=== PATIENT | male | born 1990 | race Caucasian/White ===

== ENCOUNTER 2019-06-29 18:12 | Inpatient (IN) | payer MEDICAID, SELFPAY ==
[~2019-06-29] VITALS: Ht 185.4 cm; Wt 86.2 kg
[~2019-06-29 18:12] MED LIST: MIRT15 PO; RISP.5 PO
[2019-06-29 19:14] LABS: BASOPHILS % (AUTO) 0.5 % (0.0-2.0); EOSINOPHILS % (AUTO) 2.6 % (1.0-6.0); LYMPHOCYTES % (AUTO) 26.7 % (22.0-44.0); MEAN CORPUSCULAR HGB CONC 32.5 G/dL (31.0-37.0); MEAN CORPUSCULAR VOLUME 89 fL (80-100); MONOCYTES # (AUTO) 0.6 K/uL (0.1-1.0); MONOCYTES % (AUTO) 7.5 % (2.0-9.0); NEUTROPHILS # (AUTO) 4.6 K/uL (1.8-7.7); NEUTROPHILS % (AUTO) 62.7 % (40.0-70.0); PLATELET COUNT (AUTO) 231 K/uL (150-450); RED BLOOD CELL COUNT(AUTO) 4.82 MIL/uL (4.50-5.90); RED CELL DISTRIBUTION WIDTH 13.8 % (11.5-14.5)
[2019-06-29 19:40] LABS: ANION GAP 14 mmol/L (8-16); CALCIUM, TOTAL 8.7 mg/dL (8.8-10.5); CARBON DIOXIDE 22 mmol/L (22-29); CHLORIDE 105 mmol/L (98-107); CREATININE 0.78 mg/dL (0.60-1.30); GLOMERULAR FILTR. RATE CALC > 60 mL/min (>60); GLUCOSE,RANDOM 111 mg/dL (70-110); POTASSIUM 3.5 mmol/L (3.5-5.1); SODIUM SERUM 141 mmol/L (136-145); UREA NITROGEN, BLOOD 6 mg/dL (7-18)
[2019-06-29 19:45] LABS: ALANINE AMINOTRANSFERASE 30 U/L (12-78); ALBUMIN 3.6 g/dL (3.4-5.0); ALKALINE PHOSPHATASE 116 U/L (46-116); ASPARTATE AMINOTRANSFERASE 37 U/L (15-37); BILIRUBIN,TOTAL 0.3 mg/dL (0.1-1.0); TOTAL PROTEIN, SERUM 7.2 g/dL (6.4-8.2)
[2019-06-29] MEDS ORDERED: HALOPERIDOL 5 MG TABLET PO ONE (20:30)
[2019-06-29 20:35] LABS: AMPHET/METH SCREEN,URINE POSITIVE (NEGATIVE); BARBITURATE SCREEN, URINE NEGATIVE (NEGATIVE); BENZODIAZEPINES SCREEN,URINE NEGATIVE (NEGATIVE); CANNABINOID SCREEN,URINE POSITIVE (NEGATIVE); COCAINE SCREEN,URINE NEGATIVE (NEGATIVE); METHADONE SCREEN, URINE NEGATIVE (NEGATIVE); OPIATE SCREEN,URINE NEGATIVE (NEGATIVE); PHENCYCLIDINE SCREEN,URINE NEGATIVE (NEGATIVE)
[2019-06-29] MEDS ORDERED: LORazepam 2 MG TABLET PO PRN (21:45)
[2019-06-30] VITALS (10 sets, daily range): BP systolic 117–139; BP diastolic 64–90
[2019-06-30] MEDS ORDERED: PNEUMOCOCCAL VACCINE POLYVALENT 0.5 ML VIAL [PPSV23] IM ONE (04:00)
[2019-06-30] MEDS ORDERED: ALBUTEROL SULFATE HFA 90 MCG/PUFF 8 GM INHALER IH PRN (09:45)
[2019-06-30] MEDS ORDERED: CloNIDine HCL 0.1 MG TABLET PO PRN (09:45)
[2019-06-30] MEDS ORDERED: GuaiFENesin/D-METHORPHAN [SUGAR-FREE] 200-20MG/10 ML SYRUP UDCUP PO PRN (09:45)
[2019-06-30] MEDS ORDERED: PETROLATUM,WHITE 28 GM JELLY TP PRN (09:45)
[2019-06-30] MEDS ORDERED: ONDANSETRON HCL 4 MG TABLET PO PRN (09:45)
[2019-06-30] MEDS ORDERED: NICOTINE 14 MG/24 HOUR PATCH TD PRN (09:45)
[2019-06-30] MEDS ORDERED: ACETAMINOPHEN 325 MG TABLET PO PRN (09:45)
[2019-06-30] MEDS ORDERED: MAGNESIUM HYDROXIDE SUSPENSION 30 ML UDCUP PO PRN (09:45)
[2019-06-30] MEDS ORDERED: DOCUSATE SODIUM 100 MG CAPSULE PO PRN (09:45)
[2019-06-30] MEDS ORDERED: MAG HYDROX/AL HYDROX/SIMETH ES 30 ML SUSPENSION UDCUP PO PRN (09:45)
[2019-06-30] MEDS ORDERED: IBUPROFEN 400 MG TABLET PO PRN (09:45)
[2019-06-30] MEDS ORDERED: LOPERAMIDE HCL 2 MG CAPSULE PO PRN (09:45)
[2019-06-30] MEDS ORDERED: CYANOCOBALAMIN 1,000 MCG/ML VIAL IM ONE (11:15)
[2019-06-30] MEDS ORDERED: LORazepam 2 MG TABLET PO PRN (11:15)
[2019-06-30] MEDS: MULTIVITAMINS WITH MINERALS, THERAPEUTIC TABLET PO SCH (12:26)
[2019-06-30] MEDS: FOLIC ACID 1 MG TABLET PO SCH (12:27)
[2019-06-30] MEDS: THIAMINE HCL 100 MG TABLET PO SCH (16:40)
[2019-07-01 01:16] VITALS: BP 127/79
[2019-07-01 05:16] VITALS: BP 121/81
[2019-07-01] MEDS ORDERED: LORazepam 2 MG TABLET PO PRN (07:00)
[2019-07-01 08:09] VITALS: BP 140/90
[2019-07-01] MEDS: LORazepam 2 MG TABLET PO SCH ×5 (09:00→20:36)
[2019-07-01 09:16] VITALS: BP 140/90
[2019-07-01] MEDS: FOLIC ACID 1 MG TABLET PO SCH (09:23)
[2019-07-01] MEDS: THIAMINE HCL 100 MG TABLET PO SCH ×2 (09:23→16:45)
[2019-07-01] MEDS: MULTIVITAMINS WITH MINERALS, THERAPEUTIC TABLET PO SCH (09:24)
[2019-07-01 13:16] VITALS: BP 126/49
[2019-07-01 16:00] VITALS: BP 140/62
[2019-07-01] MEDS: HALOPERIDOL 5 MG TABLET PO PRN (16:46)
[2019-07-02 06:05] VITALS: BP 122/71
[2019-07-02 08:00] VITALS: BP 114/70
[2019-07-02] MEDS: LORazepam 2 MG TABLET PO SCH ×4 (09:36→20:27)
[2019-07-02] MEDS: THIAMINE HCL 100 MG TABLET PO SCH ×2 (09:36→16:55)
[2019-07-02] MEDS: MULTIVITAMINS WITH MINERALS, THERAPEUTIC TABLET PO SCH (09:36)
[2019-07-02] MEDS: FOLIC ACID 1 MG TABLET PO SCH (09:36)
[2019-07-02] MEDS: RisperiDONE 1 MG TABLET PO SCH ×2 (10:08→20:28)
[2019-07-02 16:39] VITALS: BP_SYST 126; BP_DIAS 71; BP_DIAS 81
[2019-07-02] MEDS: HALOPERIDOL 5 MG TABLET PO PRN (16:55)
[2019-07-03 05:54] VITALS: BP 122/78
[2019-07-03] MEDS ORDERED: LORazepam 1 MG TABLET PO PRN (07:00)
[2019-07-03] MEDS: FOLIC ACID 1 MG TABLET PO SCH (08:02)
[2019-07-03] MEDS: RisperiDONE 1 MG TABLET PO SCH ×2 (08:02→20:08)
[2019-07-03] MEDS: THIAMINE HCL 100 MG TABLET PO SCH ×2 (08:02→16:02)
[2019-07-03] MEDS: LORazepam 1 MG TABLET PO SCH ×4 (08:02→20:08)
[2019-07-03] MEDS: MULTIVITAMINS WITH MINERALS, THERAPEUTIC TABLET PO SCH (08:02)
[2019-07-03] MEDS ORDERED: RISP1 PO (08:48)
[2019-07-03] MEDS ORDERED: THIA100T67 PO (08:48)
[2019-07-03 08:57] VITALS: BP 146/80
[2019-07-03 16:00] VITALS: BP 131/80
[2019-07-03 17:56] VITALS: BP 131/80
[2019-07-03] MEDS: ZOLPIDEM TARTRATE 10 MG TABLET PO PRN (20:08)
[2019-07-04 04:23] VITALS: BP 123/78
[2019-07-04] MEDS: HALOPERIDOL 5 MG TABLET PO PRN ×2 (08:22→16:21)
[2019-07-04] MEDS: MULTIVITAMINS WITH MINERALS, THERAPEUTIC TABLET PO SCH (08:22)
[2019-07-04] MEDS: LORazepam 1 MG TABLET PO PRN ×2 (08:22→16:21)
[2019-07-04] MEDS: THIAMINE HCL 100 MG TABLET PO SCH ×2 (08:22→16:21)
[2019-07-04] MEDS: RisperiDONE 1 MG TABLET PO SCH ×2 (08:22→20:20)
[2019-07-04] MEDS: FOLIC ACID 1 MG TABLET PO SCH (08:30)
[2019-07-04 09:00] VITALS: BP 129/72
[2019-07-04 16:00] VITALS: BP 128/81
[2019-07-05] MEDS: LORazepam 1 MG TABLET PO PRN (06:40)
[2019-07-05 08:14] VITALS: BP 141/69
[2019-07-05] MEDS: MULTIVITAMINS WITH MINERALS, THERAPEUTIC TABLET PO SCH (09:18)
[2019-07-05] MEDS: THIAMINE HCL 100 MG TABLET PO SCH ×2 (09:18→16:32)
[2019-07-05] MEDS: FOLIC ACID 1 MG TABLET PO SCH (09:18)
[2019-07-05] MEDS: RisperiDONE 1 MG TABLET PO SCH ×2 (09:19→20:28)
[2019-07-05 16:13] VITALS: BP 109/62
[2019-07-05] MEDS: HALOPERIDOL 5 MG TABLET PO PRN (16:32)
[2019-07-06 01:53] VITALS: BP 119/84
[2019-07-06] MEDS: HALOPERIDOL 5 MG TABLET PO PRN (02:00)
[2019-07-06] MEDS: ZOLPIDEM TARTRATE 10 MG TABLET PO PRN (02:00)
[2019-07-06 08:17] VITALS: BP 110/66
[2019-07-06] MEDS: MULTIVITAMINS WITH MINERALS, THERAPEUTIC TABLET PO SCH (08:49)
[2019-07-06] MEDS: RisperiDONE 1 MG TABLET PO SCH (08:49)
[2019-07-06] MEDS: FOLIC ACID 1 MG TABLET PO SCH (08:49)
[2019-07-06] MEDS: THIAMINE HCL 100 MG TABLET PO SCH (08:50)
== END 2019-07-06 14:28 | disposition home or self-care (01) | DRG 750 ==
LOC: EMS 18:15 → B3A 21:22
DX: F25.0 Schizoaffective disorder, bipolar type (principal); R45.851 Suicidal ideations; Z59.0 Homelessness; F60.0 Paranoid personality disorder; I10 Essential (primary) hypertension; F17.210 Nicotine dependence, cigarettes, uncomplicated; M54.9 Dorsalgia, unspecified; R73.9 Hyperglycemia, unspecified; F19.10 Other psychoactive substance abuse, uncomplicated; F10.20 Alcohol dependence, uncomplicated; F15.10 Other stimulant abuse, uncomplicated; F12.10 Cannabis abuse, uncomplicated; Z87.828 Personal history of other (healed) physical injury and trauma; Z71.51 Drug abuse counseling and surveillance of drug abuser; Z71.41 Alcohol abuse counseling and surveillance of alcoholic
CPT/HCPCS: 90732; G0480; J3420

== ENCOUNTER 2019-08-10 22:03 | Inpatient (IN) | payer MEDICAID ==
[~2019-08-10] VITALS: Ht 182.9 cm; Wt 88.5 kg
[~2019-08-10 22:03] MED LIST changes: -MIRT15 PO; -RISP.5 PO; +RISP1 PO
[2019-08-10 22:55] LABS: BASOPHILS % (AUTO) 0.6 % (0.0-2.0); EOSINOPHILS % (AUTO) 2.7 % (1.0-6.0); HEMATOCRIT 41.9 % (41-53); LYMPHOCYTES # (AUTO) 3.1 K/uL (1.0-4.8); LYMPHOCYTES % (AUTO) 39.7 % (22.0-44.0); MEAN CORPUSCULAR HEMOGLOBIN 29.3 pg (26.0-34.0); MEAN CORPUSCULAR HGB CONC 33.3 G/dL (31.0-37.0); MEAN CORPUSCULAR VOLUME 88 fL (80-100); MONOCYTES # (AUTO) 0.7 K/uL (0.1-1.0); MONOCYTES % (AUTO) 8.2 % (2.0-9.0); NEUTROPHILS # (AUTO) 3.9 K/uL (1.8-7.7); NEUTROPHILS % (AUTO) 48.8 % (40.0-70.0); PLATELET COUNT (AUTO) 336 K/uL (150-450); RED BLOOD CELL COUNT(AUTO) 4.77 MIL/uL (4.50-5.90); RED CELL DISTRIBUTION WIDTH 13.6 % (11.5-14.5)
[2019-08-10 23:20] LABS: AMPHET/METH SCREEN,URINE POSITIVE (NEGATIVE); BARBITURATE SCREEN, URINE NEGATIVE (NEGATIVE); BENZODIAZEPINES SCREEN,URINE NEGATIVE (NEGATIVE); CANNABINOID SCREEN,URINE NEGATIVE (NEGATIVE); COCAINE SCREEN,URINE NEGATIVE (NEGATIVE); METHADONE SCREEN, URINE NEGATIVE (NEGATIVE); OPIATE SCREEN,URINE NEGATIVE (NEGATIVE)
[2019-08-10 23:22] LABS: PHENCYCLIDINE SCREEN,URINE NEGATIVE (NEGATIVE)
[2019-08-10] MEDS: HALOPERIDOL LACTATE 5 MG/ML VIAL IM ONE ×2 (23:37→23:45)
[2019-08-10] MEDS: DiphenhydrAMINE HCL 50 MG/ML VIAL IM ONE ×2 (23:37→23:44)
[2019-08-10 23:38] LABS: ANION GAP 14 mmol/L (8-16); CARBON DIOXIDE 23 mmol/L (22-29); CHLORIDE 102 mmol/L (98-107); CREATININE 0.83 mg/dL (0.60-1.30); GLOMERULAR FILTR. RATE CALC > 60 mL/min (>60); GLUCOSE,RANDOM 75 mg/dL (70-110); POTASSIUM 3.5 mmol/L (3.5-5.1); SODIUM SERUM 139 mmol/L (136-145); UREA NITROGEN, BLOOD 16 mg/dL (7-18)
[2019-08-10] MEDS: LORazepam 2 MG/ML VIAL IM ONE ×2 (23:38→23:44)
[2019-08-10 23:44] LABS: ALANINE AMINOTRANSFERASE 39 U/L (12-78); ALBUMIN 3.8 g/dL (3.4-5.0); ALKALINE PHOSPHATASE 153 U/L (46-116); ASPARTATE AMINOTRANSFERASE 37 U/L (15-37); BILIRUBIN,TOTAL 0.3 mg/dL (0.1-1.0); TOTAL PROTEIN, SERUM 8.1 g/dL (6.4-8.2)
[2019-08-11] MEDS: DiphenhydrAMINE HCL 50 MG/ML VIAL IM ONE (00:03)
[2019-08-11] MEDS: HALOPERIDOL LACTATE 5 MG/ML VIAL IM ONE (00:03)
[2019-08-11] MEDS: LORazepam 2 MG/ML VIAL IM ONE (00:03)
[2019-08-11] MEDS ORDERED: INFLUENZA VIRUS VACCINE QVS 2019-20 (3YR+)/PF 60 MCG/0.5 ML SYRINGE IM ONE (03:30)
[2019-08-11 06:19] VITALS: BP 134/78
[2019-08-11] MEDS ORDERED: NICOTINE 14 MG/24 HOUR PATCH TD PRN (06:45)
[2019-08-11] MEDS ORDERED: MAGNESIUM HYDROXIDE SUSPENSION 30 ML UDCUP PO PRN (06:45)
[2019-08-11] MEDS ORDERED: ACETAMINOPHEN 325 MG TABLET PO PRN (06:45)
[2019-08-11] MEDS ORDERED: ALBUTEROL SULFATE HFA 90 MCG/PUFF 8 GM INHALER IH PRN (06:45)
[2019-08-11] MEDS ORDERED: PETROLATUM,WHITE 28 GM JELLY TP PRN (06:45)
[2019-08-11] MEDS ORDERED: CloNIDine HCL 0.1 MG TABLET PO PRN (06:45)
[2019-08-11] MEDS ORDERED: GuaiFENesin/D-METHORPHAN [SUGAR-FREE] 200-20MG/10 ML SYRUP UDCUP PO PRN (06:45)
[2019-08-11] MEDS ORDERED: LOPERAMIDE HCL 2 MG CAPSULE PO PRN (06:45)
[2019-08-11] MEDS ORDERED: MAG HYDROX/AL HYDROX/SIMETH ES 30 ML SUSPENSION UDCUP PO PRN (06:45)
[2019-08-11] MEDS ORDERED: ONDANSETRON HCL 4 MG TABLET PO PRN (06:45)
[2019-08-11 08:12] LABS: CHOL/HDL RATIO 3.2 (4.2-7.3)
[2019-08-11 08:15] VITALS: BP 133/63
[2019-08-11] MEDS ORDERED: BACITRACIN 28.4 GM OINTMENT TP SCH (09:00)
[2019-08-11] MEDS: BACITRACIN 3.5 GM OPHTHALMIC OINTMENT OD SCH ×2 (12:59→16:13)
[2019-08-11] MEDS: IBUPROFEN 400 MG TABLET PO PRN (14:55)
[2019-08-11 16:00] VITALS: BP_SYST 116; BP_SYST 123; BP_DIAS 62; BP_DIAS 84
[2019-08-11] MEDS: LORazepam 2 MG TABLET PO PRN ×2 (16:13→20:52)
[2019-08-11] MEDS: HALOPERIDOL 5 MG TABLET PO PRN (16:13)
[2019-08-11] MEDS: ZOLPIDEM TARTRATE 10 MG TABLET PO PRN (20:52)
[2019-08-11] MEDS: RisperiDONE 1 MG TABLET PO SCH (20:52)
[2019-08-12 06:50] VITALS: BP 122/74
[2019-08-12 08:36] LABS: BASOPHILS % (AUTO) 0.5 % (0.0-2.0); EOSINOPHILS % (AUTO) 4.3 % (1.0-6.0); HEMATOCRIT 44.5 % (41-53); HEMOGLOBIN 14.8 g/dL (13.5-17.5); LYMPHOCYTES # (AUTO) 1.8 K/uL (1.0-4.8); LYMPHOCYTES % (AUTO) 40.1 % (22.0-44.0); MEAN CORPUSCULAR HEMOGLOBIN 29.6 pg (26.0-34.0); MEAN CORPUSCULAR HGB CONC 33.2 G/dL (31.0-37.0); MEAN CORPUSCULAR VOLUME 89 fL (80-100); MONOCYTES # (AUTO) 0.4 K/uL (0.1-1.0); MONOCYTES % (AUTO) 7.8 % (2.0-9.0); NEUTROPHILS # (AUTO) 2.2 K/uL (1.8-7.7); NEUTROPHILS % (AUTO) 47.3 % (40.0-70.0); PLATELET COUNT (AUTO) 324 K/uL (150-450); RED CELL DISTRIBUTION WIDTH 13.8 % (11.5-14.5)
[2019-08-12 08:39] VITALS: BP 121/67
[2019-08-12 08:46] LABS: HEMOGLOBIN A1C 5.1 % (4.5-6.2)
[2019-08-12] MEDS: RisperiDONE 1 MG TABLET PO SCH ×2 (08:51→20:54)
[2019-08-12] MEDS: BACITRACIN 3.5 GM OPHTHALMIC OINTMENT OD SCH ×2 (08:51→17:18)
[2019-08-12 09:49] LABS: ALANINE AMINOTRANSFERASE 38 U/L (12-78); ALBUMIN 3.8 g/dL (3.4-5.0); ALKALINE PHOSPHATASE 138 U/L (46-116); ANION GAP 3 mmol/L (8-16); ASPARTATE AMINOTRANSFERASE 30 U/L (15-37); BILIRUBIN,TOTAL 0.2 mg/dL (0.1-1.0); CALCIUM, TOTAL 9.1 mg/dL (8.8-10.5); CARBON DIOXIDE 33 mmol/L (22-29); CHLORIDE 101 mmol/L (98-107); CREATININE 0.79 mg/dL (0.60-1.30); GLOMERULAR FILTR. RATE CALC > 60 mL/min (>60); GLUCOSE,RANDOM 88 mg/dL (70-110); POTASSIUM 4.9 mmol/L (3.5-5.1); SODIUM SERUM 137 mmol/L (136-145); TOTAL PROTEIN, SERUM 7.4 g/dL (6.4-8.2)
[2019-08-12 09:55] LABS: UREA NITROGEN, BLOOD 12 mg/dL (7-18)
[2019-08-12] MEDS: LORazepam 2 MG TABLET PO PRN ×2 (14:52→18:55)
[2019-08-12] MEDS: HALOPERIDOL 5 MG TABLET PO PRN (16:57)
[2019-08-12 19:30] VITALS: BP 120/75
[2019-08-12] MEDS: ZOLPIDEM TARTRATE 10 MG TABLET PO PRN (20:54)
[2019-08-13] VITALS (7 sets, daily range): BP systolic 113–133; BP diastolic 68–76
[2019-08-13] MEDS: BACITRACIN 3.5 GM OPHTHALMIC OINTMENT OD SCH ×2 (08:23→17:10)
[2019-08-13] MEDS: RisperiDONE 1 MG TABLET PO SCH ×2 (08:24→20:17)
[2019-08-13] MEDS: IBUPROFEN 400 MG TABLET PO PRN (08:24)
[2019-08-13] MEDS: TraMADol HCL 50 MG TABLET PO PRN ×2 (10:58→17:10)
[2019-08-14 00:02] VITALS: BP 117/65
[2019-08-14] MEDS: ZOLPIDEM TARTRATE 10 MG TABLET PO PRN ×2 (00:03→20:50)
[2019-08-14] MEDS: IBUPROFEN 400 MG TABLET PO PRN (00:04)
[2019-08-14 08:00] VITALS: BP 136/76
[2019-08-14] MEDS: BACITRACIN 3.5 GM OPHTHALMIC OINTMENT OD SCH ×2 (08:14→17:04)
[2019-08-14] MEDS: LORazepam 2 MG TABLET PO PRN ×3 (08:14→17:04)
[2019-08-14] MEDS: HALOPERIDOL 5 MG TABLET PO PRN ×3 (08:14→17:04)
[2019-08-14] MEDS: RisperiDONE 1 MG TABLET PO SCH ×2 (08:14→20:15)
[2019-08-14] MEDS: DOCUSATE SODIUM 100 MG CAPSULE PO PRN ×2 (08:14→12:18)
[2019-08-14 16:00] VITALS: BP 113/68
[2019-08-15 02:14] VITALS: BP 117/80
[2019-08-15] MEDS: HALOPERIDOL 5 MG TABLET PO PRN ×2 (08:04→14:43)
[2019-08-15] MEDS: RisperiDONE 1 MG TABLET PO SCH ×2 (08:04→20:13)
[2019-08-15] MEDS: LORazepam 2 MG TABLET PO PRN ×2 (08:04→14:43)
[2019-08-15] MEDS: BACITRACIN 3.5 GM OPHTHALMIC OINTMENT OD SCH ×2 (08:05→16:38)
[2019-08-15 08:34] VITALS: BP 132/81
[2019-08-15 16:03] VITALS: BP 108/63
[2019-08-16 05:52] VITALS: BP 113/74
[2019-08-16] MEDS: LORazepam 2 MG TABLET PO PRN ×2 (05:53→11:42)
[2019-08-16] MEDS: HALOPERIDOL 5 MG TABLET PO PRN (05:53)
[2019-08-16] MEDS: RisperiDONE 1 MG TABLET PO SCH (08:19)
[2019-08-16] MEDS: BACITRACIN 3.5 GM OPHTHALMIC OINTMENT OD SCH (08:19)
[2019-08-16 08:50] VITALS: BP 125/68
[2019-08-16 16:02] VITALS: BP 116/63
[2019-08-17] MEDS ORDERED: MULTIVITAMINS WITH MINERALS, THERAPEUTIC TABLET PO SCH (09:00)
== END 2019-08-16 16:23 | disposition home or self-care (01) | DRG 750 ==
LOC: EMS 22:05 → B3A 23:30
DX: F25.1 Schizoaffective disorder, depressive type (principal); R45.851 Suicidal ideations; Z59.0 Homelessness; F15.10 Other stimulant abuse, uncomplicated; I10 Essential (primary) hypertension; F17.210 Nicotine dependence, cigarettes, uncomplicated; Z79.899 Other long term (current) drug therapy
CPT/HCPCS: 83036; 84443; G0480; J1200; J1630; J2060

== ENCOUNTER → 2019-08-24 | Emergency (ER) | payer MEDICAID ==
[~2019-08-24] VITALS: Ht 185.4 cm; Wt 90.9 kg
[2019-08-25 01:01] LABS: BASOPHILS % (AUTO) 0.8 % (0.0-2.0); EOSINOPHILS % (AUTO) 3.9 % (1.0-6.0); HEMATOCRIT 44.5 % (41-53); HEMOGLOBIN 14.7 g/dL (13.5-17.5); LYMPHOCYTES # (AUTO) 2.7 K/uL (1.0-4.8); LYMPHOCYTES % (AUTO) 34.7 % (22.0-44.0); MEAN CORPUSCULAR HEMOGLOBIN 28.9 pg (26.0-34.0); MEAN CORPUSCULAR VOLUME 87 fL (80-100); MONOCYTES # (AUTO) 0.7 K/uL (0.1-1.0); MONOCYTES % (AUTO) 8.8 % (2.0-9.0); NEUTROPHILS % (AUTO) 51.8 % (40.0-70.0); PLATELET COUNT (AUTO) 324 K/uL (150-450); RED BLOOD CELL COUNT(AUTO) 5.09 MIL/uL (4.50-5.90); RED CELL DISTRIBUTION WIDTH 13.7 % (11.5-14.5)
[2019-08-25 01:10] LABS: ANION GAP 9 mmol/L (8-16); CALCIUM, TOTAL 8.6 mg/dL (8.8-10.5); CARBON DIOXIDE 27 mmol/L (22-29); CHLORIDE 104 mmol/L (98-107); GLOMERULAR FILTR. RATE CALC > 60 mL/min (>60); GLUCOSE,RANDOM 97 mg/dL (70-110); POTASSIUM 3.8 mmol/L (3.5-5.1); SODIUM SERUM 140 mmol/L (136-145); UREA NITROGEN, BLOOD 12 mg/dL (7-18)
[2019-08-25 01:16] LABS: ALANINE AMINOTRANSFERASE 29 U/L (12-78); ALKALINE PHOSPHATASE 163 U/L (46-116); ASPARTATE AMINOTRANSFERASE 27 U/L (15-37); BILIRUBIN,TOTAL 0.2 mg/dL (0.1-1.0); TOTAL PROTEIN, SERUM 7.8 g/dL (6.4-8.2)
[2019-08-25 10:56] VITALS: BP 125/76
== END | disposition home or self-care (01) ==
LOC: EMS 22:58
DX: R45.1 Restlessness and agitation (principal); F17.210 Nicotine dependence, cigarettes, uncomplicated; F15.90 Other stimulant use, unspecified, uncomplicated; Z59.0 Homelessness; Z79.899 Other long term (current) drug therapy
CPT/HCPCS: 80053; 85025; 99284; G0480

== ENCOUNTER 2019-08-25 15:52 | Inpatient (IN) | payer MEDICAID ==
[~2019-08-25] VITALS: Ht 180.3 cm; Wt 86.8 kg
[2019-08-25 17:41] LABS: BASOPHILS % (AUTO) 0.3 % (0.0-2.0); EOSINOPHILS % (AUTO) 2.2 % (1.0-6.0); HEMATOCRIT 42.6 % (41-53); HEMOGLOBIN 14.5 g/dL (13.5-17.5); LYMPHOCYTES # (AUTO) 2.4 K/uL (1.0-4.8); LYMPHOCYTES % (AUTO) 24.1 % (22.0-44.0); MEAN CORPUSCULAR HEMOGLOBIN 29.8 pg (26.0-34.0); MEAN CORPUSCULAR VOLUME 88 fL (80-100); MONOCYTES # (AUTO) 0.6 K/uL (0.1-1.0); MONOCYTES % (AUTO) 5.7 % (2.0-9.0); NEUTROPHILS # (AUTO) 6.8 K/uL (1.8-7.7); NEUTROPHILS % (AUTO) 67.7 % (40.0-70.0); PLATELET COUNT (AUTO) 314 K/uL (150-450); RED BLOOD CELL COUNT(AUTO) 4.86 MIL/uL (4.50-5.90); RED CELL DISTRIBUTION WIDTH 13.8 % (11.5-14.5)
[2019-08-25 17:59] LABS: ANION GAP 10 mmol/L (8-16); CALCIUM, TOTAL 7.8 mg/dL (8.8-10.5); CARBON DIOXIDE 26 mmol/L (22-29); CHLORIDE 104 mmol/L (98-107); CREATININE 0.69 mg/dL (0.60-1.30); GLOMERULAR FILTR. RATE CALC > 60 mL/min (>60); GLUCOSE,RANDOM 89 mg/dL (70-110); POTASSIUM 3.7 mmol/L (3.5-5.1); SODIUM SERUM 140 mmol/L (136-145); UREA NITROGEN, BLOOD 5 mg/dL (7-18)
[2019-08-25 18:02] LABS: ALANINE AMINOTRANSFERASE 26 U/L (12-78); ALBUMIN 3.6 g/dL (3.4-5.0); ALKALINE PHOSPHATASE 153 U/L (46-116); ASPARTATE AMINOTRANSFERASE 21 U/L (15-37); BILIRUBIN,TOTAL 0.2 mg/dL (0.1-1.0); TOTAL PROTEIN, SERUM 7.4 g/dL (6.4-8.2)
[2019-08-25] MEDS ORDERED: QUEtiapine FUMARATE 100 MG TABLET PO PRN (20:00)
[2019-08-25] MEDS ORDERED: ZOLPIDEM TARTRATE 10 MG TABLET PO PRN (20:00)
[2019-08-25 21:10] LABS: AMPHET/METH SCREEN,URINE POSITIVE (NEGATIVE); BARBITURATE SCREEN, URINE NEGATIVE (NEGATIVE); BENZODIAZEPINES SCREEN,URINE NEGATIVE (NEGATIVE); CANNABINOID SCREEN,URINE POSITIVE (NEGATIVE); COCAINE SCREEN,URINE NEGATIVE (NEGATIVE); METHADONE SCREEN, URINE NEGATIVE (NEGATIVE); OPIATE SCREEN,URINE NEGATIVE (NEGATIVE); PHENCYCLIDINE SCREEN,URINE NEGATIVE (NEGATIVE)
[2019-08-26 00:35] VITALS: BP 137/78
[2019-08-26] MEDS ORDERED: INFLUENZA VIRUS VACCINE QVS 2019-20 (3YR+)/PF 60 MCG/0.5 ML SYRINGE IM ONE (00:45)
[2019-08-26] MEDS ORDERED: PNEUMOCOCCAL VACCINE POLYVALENT 0.5 ML VIAL [PPSV23] IM ONE (00:45)
[2019-08-26 03:27] VITALS: BP 145/86
[2019-08-26 08:31] VITALS: BP 132/60
[2019-08-26 08:51] LABS: CHOL/HDL RATIO 2.5 (4.2-7.3)
[2019-08-26] MEDS: LORazepam 2 MG TABLET PO PRN (09:45)
[2019-08-26] MEDS: RisperiDONE 1 MG TABLET PO SCH ×2 (12:06→20:42)
[2019-08-26 16:00] VITALS: BP 135/72
[2019-08-26 16:05] VITALS: BP 135/72
[2019-08-26 20:00] VITALS: BP 122/83
[2019-08-27] VITALS: BP 115/79
[2019-08-27 07:01] VITALS: BP 115/79
[2019-08-27 08:00] VITALS: BP 131/73
[2019-08-27] MEDS: RisperiDONE 1 MG TABLET PO SCH ×2 (08:19→20:10)
[2019-08-27 08:35] VITALS: BP 131/73
[2019-08-27 16:00] VITALS: BP 140/89
[2019-08-28 06:26] VITALS: BP 112/59
[2019-08-28 07:11] VITALS: BP 125/60
[2019-08-28 08:15] VITALS: BP 121/60
[2019-08-28 08:16] VITALS: BP 121/60
[2019-08-28] MEDS: THIAMINE HCL 100 MG TABLET PO SCH (08:18)
[2019-08-28] MEDS: MULTIVITAMINS WITH MINERALS, THERAPEUTIC TABLET PO SCH (08:19)
[2019-08-28] MEDS: RisperiDONE 1 MG TABLET PO SCH ×2 (08:19→20:22)
[2019-08-28] MEDS: LORazepam 2 MG TABLET PO PRN (16:04)
[2019-08-28 16:08] VITALS: BP 129/97
[2019-08-29 07:07] VITALS: BP 124/84
[2019-08-29 08:00] VITALS: BP 130/79
[2019-08-29] MEDS: MULTIVITAMINS WITH MINERALS, THERAPEUTIC TABLET PO SCH (08:08)
[2019-08-29] MEDS: LORazepam 2 MG TABLET PO PRN (08:08)
[2019-08-29] MEDS: RisperiDONE 1 MG TABLET PO SCH (08:08)
[2019-08-29] MEDS: THIAMINE HCL 100 MG TABLET PO SCH (08:08)
== END 2019-08-29 13:20 | disposition home or self-care (01) | DRG 750 ==
LOC: EMS 15:55 → B3A 22:42
DX: F25.1 Schizoaffective disorder, depressive type (principal); Z59.0 Homelessness; F10.129 Alcohol abuse with intoxication, unspecified; Z28.21 Immunization not carried out because of patient refusal; F12.10 Cannabis abuse, uncomplicated; F15.10 Other stimulant abuse, uncomplicated; F17.200 Nicotine dependence, unspecified, uncomplicated; I10 Essential (primary) hypertension; Z79.899 Other long term (current) drug therapy; Z91.14 Patient's other noncompliance with medication regimen; Y90.6 Blood alcohol level of 120-199 mg/100 ml
CPT/HCPCS: 87081; G0480

== ENCOUNTER 2020-01-31 08:58 | Inpatient (IN) | payer MEDICAID ==
[~2020-01-31] VITALS: Ht 185.4 cm; Wt 92.1 kg
[2020-01-31] MEDS ORDERED: ACETAMINOPHEN 325 MG TABLET PO PRN (22:45)
[2020-01-31] MEDS ORDERED: LOPERAMIDE HCL 2 MG CAPSULE PO PRN (22:45)
[2020-01-31] MEDS ORDERED: TUBERCULIN, PURIFIED PROTEIN DERIVATIVE 5 TU/0.1 ML SYRINGE ID ONE (22:45)
[2020-01-31] MEDS ORDERED: MAG HYDROX/AL HYDROX/SIMETH ES 30 ML SUSPENSION UDCUP PO PRN (22:45)
[2020-01-31] MEDS ORDERED: OLANZapine 5 MG RAPDIS TABLET PO PRN (22:45)
[2020-01-31] MEDS ORDERED: PROMETHAZINE HCL 25 MG TABLET PO PRN (22:45)
[2020-01-31] MEDS ORDERED: MAGNESIUM HYDROXIDE SUSPENSION 30 ML UDCUP PO PRN (22:45)
[2020-01-31] MEDS ORDERED: GuaiFENesin/D-METHORPHAN [SUGAR-FREE] 200-20MG/10 ML SYRUP UDCUP PO PRN (22:45)
[2020-01-31] MEDS ORDERED: INFLUENZA VIRUS VACCINE QVS 2019-20 (3YR+)/PF 60 MCG/0.5 ML SYRINGE IM ONE (23:45)
[2020-02-01 00:14] VITALS: BP 116/69
[2020-02-01] MEDS: LORazepam 2 MG TABLET PO PRN ×3 (00:51→21:26)
[2020-02-01] MEDS: ZOLPIDEM TARTRATE 10 MG TABLET PO PRN ×2 (00:51→21:26)
[2020-02-01 08:22] VITALS: BP 119/85
[2020-02-01 08:27] LABS: BASOPHILS % (AUTO) 0.3 % (0.0-2.0); EOSINOPHILS % (AUTO) 3.3 % (1.0-6.0); HEMATOCRIT 42.9 % (41-53); HEMOGLOBIN 13.9 g/dL (13.5-17.5); LYMPHOCYTES # (AUTO) 3.3 K/uL (1.0-4.8); LYMPHOCYTES % (AUTO) 52.7 % (22.0-44.0); MEAN CORPUSCULAR HEMOGLOBIN 27.8 pg (26.0-34.0); MEAN CORPUSCULAR HGB CONC 32.5 G/dL (31.0-37.0); MEAN CORPUSCULAR VOLUME 86 fL (80-100); MONOCYTES # (AUTO) 0.5 K/uL (0.1-1.0); MONOCYTES % (AUTO) 7.9 % (2.0-9.0); NEUTROPHILS # (AUTO) 2.3 K/uL (1.8-7.7); NEUTROPHILS % (AUTO) 35.8 % (40.0-70.0); PLATELET COUNT (AUTO) 192 K/uL (150-450); RED BLOOD CELL COUNT(AUTO) 5.01 MIL/uL (4.50-5.90); RED CELL DISTRIBUTION WIDTH 14.5 % (11.5-14.5)
[2020-02-01 08:53] LABS: ALANINE AMINOTRANSFERASE 21 U/L (12-78); ALBUMIN 3.5 g/dL (3.4-5.0); ALKALINE PHOSPHATASE 76 U/L (46-116); ANION GAP 5 mmol/L (8-16); ASPARTATE AMINOTRANSFERASE 18 U/L (15-37); BILIRUBIN,TOTAL 0.2 mg/dL (0.1-1.0); CALCIUM, TOTAL 8.5 mg/dL (8.8-10.5); CARBON DIOXIDE 28 mmol/L (22-29); CHLORIDE 107 mmol/L (98-107); CHOL/HDL RATIO 4.1 (4.2-7.3); CHOLESTEROL 172 mg/dL (131-200); CREATININE 0.81 mg/dL (0.60-1.30); FREE T4 (FREE THYROXINE) 0.82 ng/dL (0.76-1.46); GLOMERULAR FILTR. RATE CALC > 60 mL/min (>60); GLUCOSE,RANDOM 81 mg/dL (70-110); HDL CHOLESTEROL 42 mg/dL (40-60); LDL CHOL (CALC.) 100 mg/dL (0-130); POTASSIUM 3.7 mmol/L (3.5-5.1); SODIUM SERUM 140 mmol/L (136-145); THYROID STIMULATING HORMONE 15.16 uIU/mL (0.36-3.74); TOTAL PROTEIN, SERUM 6.8 g/dL (6.4-8.2); TRIGLYCERIDES 149 mg/dL (15-150); UREA NITROGEN, BLOOD 13 mg/dL (7-18)
[2020-02-01] MEDS: THIAMINE HCL 100 MG TABLET PO SCH ×2 (09:47→17:25)
[2020-02-01] MEDS: FOLIC ACID 1 MG TABLET PO SCH (09:47)
[2020-02-01] MEDS: MULTIVITAMINS WITH MINERALS, THERAPEUTIC TABLET PO SCH (09:49)
[2020-02-01] MEDS: NALTREXONE HCL 50 MG TABLET PO SCH (10:09)
[2020-02-01 16:12] VITALS: BP 136/83
[2020-02-01] MEDS ORDERED: QUEtiapine FUMARATE 100 MG TABLET PO PRN (17:30)
[2020-02-01] MEDS ORDERED: QUEtiapine FUMARATE 200 MG TABLET PO SCH (21:00)
[2020-02-01] MEDS ORDERED: OLANZapine 5 MG RAPDIS TABLET PO SCH (21:00)
[2020-02-02 05:17] VITALS: BP 125/85
[2020-02-02 08:13] VITALS: BP 105/60
[2020-02-02 08:21] LABS: FREE T4 (FREE THYROXINE) 0.72 ng/dL (0.76-1.46); THYROID STIMULATING HORMONE 7.15 uIU/mL (0.36-3.74)
[2020-02-02] MEDS: THIAMINE HCL 100 MG TABLET PO SCH ×2 (08:48→16:18)
[2020-02-02] MEDS: FOLIC ACID 1 MG TABLET PO SCH (08:48)
[2020-02-02] MEDS: MULTIVITAMINS WITH MINERALS, THERAPEUTIC TABLET PO SCH (08:48)
[2020-02-02] MEDS: NALTREXONE HCL 50 MG TABLET PO SCH (08:48)
[2020-02-02] MEDS ORDERED: OLANZapine 5 MG RAPDIS TABLET PO PRN (13:15)
[2020-02-02] MEDS: LEVOTHYROXINE SODIUM 50 MCG TABLET PO SCH (14:04)
[2020-02-02 16:13] VITALS: BP 115/78
[2020-02-02] MEDS: LORazepam 2 MG TABLET PO PRN (16:18)
[2020-02-02] MEDS: HydrOXYzine PAMOATE 50 MG CAPSULE PO PRN (16:19)
[2020-02-02] MEDS: ZOLPIDEM TARTRATE 10 MG TABLET PO PRN (20:44)
[2020-02-02] MEDS ORDERED: OLANZapine 5 MG RAPDIS TABLET PO SCH (21:00)
[2020-02-03 06:34] VITALS: BP 117/45
[2020-02-03] MEDS: LEVOTHYROXINE SODIUM 50 MCG TABLET PO SCH (06:51)
[2020-02-03 08:16] VITALS: BP 117/60
[2020-02-03] MEDS: FOLIC ACID 1 MG TABLET PO SCH (08:45)
[2020-02-03] MEDS: THIAMINE HCL 100 MG TABLET PO SCH ×2 (08:45→16:30)
[2020-02-03] MEDS: MULTIVITAMINS WITH MINERALS, THERAPEUTIC TABLET PO SCH (08:45)
[2020-02-03] MEDS: FLUoxetine HCL 20 MG CAPSULE PO SCH (08:45)
[2020-02-03] MEDS: NALTREXONE HCL 50 MG TABLET PO SCH (08:45)
[2020-02-03 16:17] VITALS: BP 134/64
[2020-02-03] MEDS: HydrOXYzine PAMOATE 50 MG CAPSULE PO PRN (16:30)
[2020-02-03] MEDS: LORazepam 2 MG TABLET PO PRN (16:30)
[2020-02-03] MEDS: OLANZapine 10 MG RAPDIS TABLET PO SCH (20:42)
[2020-02-04 01:02] VITALS: BP 132/72
[2020-02-04] MEDS: LEVOTHYROXINE SODIUM 50 MCG TABLET PO SCH (06:33)
[2020-02-04 08:15] VITALS: BP 128/82
[2020-02-04] MEDS: FOLIC ACID 1 MG TABLET PO SCH (09:10)
[2020-02-04] MEDS: THIAMINE HCL 100 MG TABLET PO SCH ×2 (09:10→17:23)
[2020-02-04] MEDS: FLUoxetine HCL 20 MG CAPSULE PO SCH (09:10)
[2020-02-04] MEDS: MULTIVITAMINS WITH MINERALS, THERAPEUTIC TABLET PO SCH (09:10)
[2020-02-04] MEDS: NALTREXONE HCL 50 MG TABLET PO SCH (09:10)
[2020-02-04 16:44] VITALS: BP 135/71
[2020-02-04] MEDS: OLANZapine 10 MG RAPDIS TABLET PO SCH (20:15)
[2020-02-04] MEDS: ZOLPIDEM TARTRATE 10 MG TABLET PO PRN (20:46)
[2020-02-05 06:17] VITALS: BP 131/74
[2020-02-05] MEDS: LEVOTHYROXINE SODIUM 50 MCG TABLET PO SCH (06:30)
[2020-02-05 08:34] VITALS: BP 121/78
[2020-02-05] MEDS: FOLIC ACID 1 MG TABLET PO SCH (08:46)
[2020-02-05] MEDS: THIAMINE HCL 100 MG TABLET PO SCH ×2 (08:46→17:37)
[2020-02-05] MEDS: NALTREXONE HCL 50 MG TABLET PO SCH (08:46)
[2020-02-05] MEDS: FLUoxetine HCL 20 MG CAPSULE PO SCH (08:47)
[2020-02-05] MEDS: MULTIVITAMINS WITH MINERALS, THERAPEUTIC TABLET PO SCH (08:47)
[2020-02-05 16:16] VITALS: BP 130/66
[2020-02-05] MEDS: OLANZapine 10 MG RAPDIS TABLET PO SCH (20:55)
[2020-02-06 05:42] VITALS: BP 124/74
[2020-02-06] MEDS: LEVOTHYROXINE SODIUM 50 MCG TABLET PO SCH (06:20)
[2020-02-06 08:09] VITALS: BP 110/61
[2020-02-06] MEDS: NALTREXONE HCL 50 MG TABLET PO SCH (08:18)
[2020-02-06] MEDS: THIAMINE HCL 100 MG TABLET PO SCH ×2 (08:18→18:04)
[2020-02-06] MEDS: FOLIC ACID 1 MG TABLET PO SCH (08:19)
[2020-02-06] MEDS: FLUoxetine HCL 20 MG CAPSULE PO SCH (08:19)
[2020-02-06] MEDS: MULTIVITAMINS WITH MINERALS, THERAPEUTIC TABLET PO SCH (08:19)
[2020-02-06 16:15] VITALS: BP 111/72
[2020-02-06] MEDS: ZOLPIDEM TARTRATE 10 MG TABLET PO PRN (21:00)
[2020-02-06] MEDS: OLANZapine 10 MG RAPDIS TABLET PO SCH (21:00)
[2020-02-07] MEDS: LEVOTHYROXINE SODIUM 50 MCG TABLET PO SCH (06:25)
[2020-02-07 06:38] VITALS: BP 118/75
[2020-02-07 08:29] LABS: APPEARANCE,URINE CLEAR (CLEAR); BILIRUBIN,URINE NEGATIVE (NEGATIVE); GLUCOSE, URINE (UA) NEGATIVE (NEGATIVE); KETONES,URINE NEGATIVE (NEGATIVE); LEUKOCYTE ESTERASE ,URINE TRACE (NEGATIVE); NITRATE,URINE NEGATIVE (NEGATIVE); OCCULT BLOOD,URINE NEGATIVE (NEGATIVE); PH,URINE 7.5 (5.0-8.0); PROTEIN,URINE NEGATIVE (NEGATIVE); UROBILINOGEN,URINE 0.2 mg/dL (<=1.0)
[2020-02-07 08:35] LABS: AMPHET/METH SCREEN,URINE NEGATIVE (NEGATIVE); BARBITURATE SCREEN, URINE NEGATIVE (NEGATIVE); BENZODIAZEPINES SCREEN,URINE NEGATIVE (NEGATIVE); CANNABINOID SCREEN,URINE NEGATIVE (NEGATIVE); COCAINE SCREEN,URINE NEGATIVE (NEGATIVE); METHADONE SCREEN, URINE NEGATIVE (NEGATIVE); OPIATE SCREEN,URINE NEGATIVE (NEGATIVE)
[2020-02-07 08:38] LABS: PHENCYCLIDINE SCREEN,URINE NEGATIVE (NEGATIVE)
[2020-02-07 08:44] VITALS: BP 128/50
[2020-02-07] MEDS: MULTIVITAMINS WITH MINERALS, THERAPEUTIC TABLET PO SCH (09:02)
[2020-02-07] MEDS: FOLIC ACID 1 MG TABLET PO SCH (09:02)
[2020-02-07] MEDS: NALTREXONE HCL 50 MG TABLET PO SCH (09:02)
[2020-02-07] MEDS: FLUoxetine HCL 20 MG CAPSULE PO SCH (09:02)
[2020-02-07] MEDS: THIAMINE HCL 100 MG TABLET PO SCH (09:02)
[2020-02-07 09:07] LABS: BACTERIA,URINE None Seen /HPF (None Seen); RBC,URINE None Seen /HPF (0-2); SQUAMOUS EPITHELIAL CELL,UR Rare /LPF (None Seen); WBC,URINE 0-2 /HPF (0-5)
[2020-02-07] MEDS ORDERED: FLUO-191 PO (13:32)
[2020-02-07] MEDS ORDERED: OLAN10TA22 PO (13:32)
[2020-02-07] MEDS ORDERED: NALT50TA PO (13:32)
[2020-02-07] MEDS ORDERED: LEVO125T95 PO (14:41)
== END 2020-02-07 15:10 | disposition home or self-care (01) | DRG 750 ==
LOC: B3A 22:42
PROVIDERS: ADMIT Psychiatry & Neurology Psychiatry; ATTEND Psychiatry & Neurology Psychiatry
DX: F20.0 Paranoid schizophrenia (principal); Z59.0 Homelessness; R45.851 Suicidal ideations; F12.10 Cannabis abuse, uncomplicated; Z91.19 Patient's noncompliance with other medical treatment and regimen; F15.10 Other stimulant abuse, uncomplicated; F19.20 Other psychoactive substance dependence, uncomplicated; F17.210 Nicotine dependence, cigarettes, uncomplicated; I10 Essential (primary) hypertension; F41.9 Anxiety disorder, unspecified; G47.00 Insomnia, unspecified; Z28.21 Immunization not carried out because of patient refusal
CPT/HCPCS: 80307; 83036; 84439; 84443; 86592

== ENCOUNTER 2020-03-07 20:40 | Emergency (ER) | payer MEDICAID, OTHER ==
[~2020-03-07] VITALS: Ht 175.3 cm; Wt 75.0 kg
[~2020-03-07 20:40] MED LIST changes: +FLUO-191 PO; +LEVO125T95 PO; +NALT50TA PO; +OLAN10TA22 PO; -RISP1 PO
[2020-03-07 22:58] LABS: ANION GAP 16 mmol/L (8-16); CALCIUM, TOTAL 9.9 mg/dL (8.8-10.5); CARBON DIOXIDE 25 mmol/L (22-29); CHLORIDE 97 mmol/L (98-107); CREATININE 1.26 mg/dL (0.60-1.30); GLOMERULAR FILTR. RATE CALC > 60 mL/min (>60); GLUCOSE,RANDOM 90 mg/dL (70-110); POTASSIUM 3.8 mmol/L (3.5-5.1); SODIUM SERUM 138 mmol/L (136-145); UREA NITROGEN, BLOOD 20 mg/dL (7-18)
[2020-03-07 23:01] LABS: BASOPHILS % (AUTO) 0.2 % (0.0-2.0); EOSINOPHILS % (AUTO) 0.2 % (1.0-6.0); HEMATOCRIT 51.8 % (41-53); HEMOGLOBIN 16.8 g/dL (13.5-17.5); LYMPHOCYTES # (AUTO) 2.3 K/uL (1.0-4.8); LYMPHOCYTES % (AUTO) 16.1 % (22.0-44.0); MEAN CORPUSCULAR HEMOGLOBIN 27.8 pg (26.0-34.0); MEAN CORPUSCULAR HGB CONC 32.3 G/dL (31.0-37.0); MEAN CORPUSCULAR VOLUME 86 fL (80-100); MONOCYTES % (AUTO) 7.2 % (2.0-9.0); NEUTROPHILS # (AUTO) 10.7 K/uL (1.8-7.7); NEUTROPHILS % (AUTO) 76.3 % (40.0-70.0); PLATELET COUNT (AUTO) 313 K/uL (150-450); RED BLOOD CELL COUNT(AUTO) 6.04 MIL/uL (4.50-5.90); RED CELL DISTRIBUTION WIDTH 14.2 % (11.5-14.5)
[2020-03-07 23:05] LABS: ALANINE AMINOTRANSFERASE 28 U/L (12-78); ALBUMIN 5.5 g/dL (3.4-5.0); ALKALINE PHOSPHATASE 126 U/L (46-116); ASPARTATE AMINOTRANSFERASE 34 U/L (15-37); BILIRUBIN,TOTAL 0.9 mg/dL (0.1-1.0)
[2020-03-07] MEDS ORDERED: ONDANSETRON HCL 4 MG TABLET PO ONE (23:15)
[2020-03-07] MEDS ORDERED: LORazepam 1 MG TABLET PO ONE (23:45)
[2020-03-08] MEDS ORDERED: HALOPERIDOL 5 MG TABLET PO ONE (01:15)
[2020-03-08 02:23] VITALS: BP 129/84
== END 2020-03-08 02:37 | disposition home or self-care (01) ==
LOC: EMS 20:40
DX: F15.10 Other stimulant abuse, uncomplicated (principal); F17.210 Nicotine dependence, cigarettes, uncomplicated; Z59.0 Homelessness
CPT/HCPCS: 80053; 85025; 99284; G0480; Q0162

== ENCOUNTER 2021-01-04 08:22 | Emergency (ER) | payer OTHER ==
[~2021-01-04] VITALS: Ht 185.4 cm; Wt 90.9 kg
[2021-01-04] MEDS ORDERED: DiphenhydrAMINE HCL 50 MG/ML VIAL IM ONE (09:30)
[2021-01-04] MEDS ORDERED: LORazepam 2 MG/ML VIAL IM ONE (09:30)
[2021-01-04] MEDS ORDERED: HALOPERIDOL LACTATE 5 MG/ML VIAL IM ONE (09:30)
[2021-01-04 09:44] LABS: BASOPHILS % (AUTO) 0.4 % (0.0-2.0); EOSINOPHILS % (AUTO) 0.6 % (1.0-6.0); HEMATOCRIT 42.8 % (41-53); HEMOGLOBIN 14.3 g/dL (13.5-17.5); LYMPHOCYTES # (AUTO) 3.7 K/uL (1.0-4.8); LYMPHOCYTES % (AUTO) 44.1 % (22.0-44.0); MEAN CORPUSCULAR HEMOGLOBIN 28.4 pg (26.0-34.0); MEAN CORPUSCULAR HGB CONC 33.3 G/dL (31.0-37.0); MEAN CORPUSCULAR VOLUME 85 fL (80-100); MONOCYTES # (AUTO) 0.7 K/uL (0.1-1.0); MONOCYTES % (AUTO) 8.6 % (2.0-9.0); NEUTROPHILS # (AUTO) 3.9 K/uL (1.8-7.7); NEUTROPHILS % (AUTO) 46.3 % (40.0-70.0); PLATELET COUNT (AUTO) 233 K/uL (150-450); RED BLOOD CELL COUNT(AUTO) 5.03 MIL/uL (4.50-5.90); RED CELL DISTRIBUTION WIDTH 14.1 % (11.5-14.5)
[2021-01-04 09:45] LABS: ANION GAP 13 mmol/L (8-16); CALCIUM, TOTAL 8.5 mg/dL (8.8-10.5); CARBON DIOXIDE 25 mmol/L (22-29); CHLORIDE 102 mmol/L (98-107); CREATININE 0.75 mg/dL (0.60-1.30); GLOMERULAR FILTR. RATE CALC > 60 mL/min (>60); GLUCOSE,RANDOM 76 mg/dL (70-110); POTASSIUM 3.6 mmol/L (3.5-5.1); SODIUM SERUM 140 mmol/L (136-145); UREA NITROGEN, BLOOD 10 mg/dL (7-18)
[2021-01-04 10:19] LABS: ALANINE AMINOTRANSFERASE 74 U/L (12-78); ALBUMIN 4.4 g/dL (3.4-5.0); ALKALINE PHOSPHATASE 89 U/L (46-116); ASPARTATE AMINOTRANSFERASE 156 U/L (15-37); BILIRUBIN,TOTAL 0.6 mg/dL (0.1-1.0); TOTAL PROTEIN, SERUM 7.9 g/dL (6.4-8.2)
[2021-01-04 10:20] LABS: CREATINE KINASE, TOTAL ONLY 6190 U/L (39-308)
[2021-01-04 16:14] VITALS: BP 123/79
== END 2021-01-04 16:26 | disposition home or self-care (01) ==
LOC: EMS 08:28
DX: F25.9 Schizoaffective disorder, unspecified (principal); F15.10 Other stimulant abuse, uncomplicated
CPT/HCPCS: 36415; 80053; 82550; 85025; 96372; 99284; G0480; J1200; J1630; J2060

== ENCOUNTER 2021-05-06 20:30 | Inpatient (IN) | payer MEDICAID, OTHER ==
[~2021-05-06] VITALS: Ht 182.9 cm; Wt 98.4 kg
[2021-05-06 23:34] LABS: COVID AG,FIA SOURCE NASOPHARYNGEAL
[2021-05-06 23:46] LABS: AMPHET/METH SCREEN,URINE POSITIVE (NEGATIVE); BARBITURATE SCREEN, URINE NEGATIVE (NEGATIVE); BENZODIAZEPINES SCREEN,URINE NEGATIVE (NEGATIVE); CANNABINOID SCREEN,URINE POSITIVE (NEGATIVE); COCAINE SCREEN,URINE NEGATIVE (NEGATIVE); METHADONE SCREEN, URINE NEGATIVE (NEGATIVE); OPIATE SCREEN,URINE NEGATIVE (NEGATIVE)
[2021-05-06 23:50] LABS: PHENCYCLIDINE SCREEN,URINE NEGATIVE (NEGATIVE)
[2021-05-06 23:59] LABS: HEMOGLOBIN 14.1 g/dL (13.5-17.5); MONOCYTES # (AUTO) 0.6 K/uL (0.1-1.0)
[2021-05-07] MEDS ORDERED: OLANZapine 5 MG TABLET PO ONE
[2021-05-07 00:03] LABS: BASOPHILS % (AUTO) 0.2 % (0.0-2.0); EOSINOPHILS % (AUTO) 1.7 % (1.0-6.0); HEMATOCRIT 42.5 % (41-53); LYMPHOCYTES # (AUTO) 4.8 K/uL (1.0-4.8); LYMPHOCYTES % (AUTO) 51.9 % (22.0-44.0); MEAN CORPUSCULAR HEMOGLOBIN 28.2 pg (26.0-34.0); MEAN CORPUSCULAR HGB CONC 33.2 G/dL (31.0-37.0); MEAN CORPUSCULAR VOLUME 85 fL (80-100); MONOCYTES % (AUTO) 6.8 % (2.0-9.0); NEUTROPHILS # (AUTO) 3.7 K/uL (1.8-7.7); NEUTROPHILS % (AUTO) 39.4 % (40.0-70.0); PLATELET COUNT (AUTO) 287 K/uL (150-450); RED BLOOD CELL COUNT(AUTO) 5.01 MIL/uL (4.50-5.90); RED CELL DISTRIBUTION WIDTH 14.4 % (11.5-14.5)
[2021-05-07 00:04] LABS: ANION GAP 10 mmol/L (8-16); CALCIUM, TOTAL 8.8 mg/dL (8.8-10.5); CARBON DIOXIDE 28 mmol/L (22-29); CHLORIDE 100 mmol/L (98-107); CREATININE 0.88 mg/dL (0.60-1.30); GLOMERULAR FILTR. RATE CALC > 60 mL/min (>60); GLUCOSE,RANDOM 99 mg/dL (70-110); POTASSIUM 3.5 mmol/L (3.5-5.1); SODIUM SERUM 138 mmol/L (136-145); UREA NITROGEN, BLOOD 9 mg/dL (7-18)
[2021-05-07 00:09] LABS: ALANINE AMINOTRANSFERASE 69 U/L (12-78); ALBUMIN 4.1 g/dL (3.4-5.0); ALKALINE PHOSPHATASE 97 U/L (46-116); ASPARTATE AMINOTRANSFERASE 38 U/L (15-37); BILIRUBIN,TOTAL 0.4 mg/dL (0.1-1.0); TOTAL PROTEIN, SERUM 8.1 g/dL (6.4-8.2)
[2021-05-07] MEDS ORDERED: HALOPERIDOL 5 MG TABLET PO PRN (00:30)
[2021-05-07] MEDS: ZOLPIDEM TARTRATE 10 MG TABLET PO PRN ×2 (01:23→21:52)
[2021-05-07] MEDS: LORazepam 2 MG TABLET PO PRN (01:23)
[2021-05-07] MEDS ORDERED: HALOPERIDOL LACTATE 5 MG/ML VIAL IM ONE (01:30)
[2021-05-07] MEDS ORDERED: LORazepam 2 MG/ML VIAL IM ONE (01:30)
[2021-05-07] MEDS ORDERED: DiphenhydrAMINE HCL 50 MG/ML VIAL IM ONE (01:30)
[2021-05-07] MEDS ORDERED: PETROLATUM,WHITE 28 GM JELLY TP PRN (07:30)
[2021-05-07] MEDS ORDERED: IBUPROFEN 400 MG TABLET PO PRN ×2 (07:30→11:00)
[2021-05-07] MEDS ORDERED: GuaiFENesin/D-METHORPHAN [SUGAR-FREE] 200-20MG/10 ML SYRUP UDCUP PO PRN (07:30)
[2021-05-07] MEDS ORDERED: CloNIDine HCL 0.1 MG TABLET PO PRN (07:30)
[2021-05-07] MEDS ORDERED: MAG HYDROX/AL HYDROX/SIMETH ES 30 ML SUSPENSION UDCUP PO PRN (07:30)
[2021-05-07] MEDS ORDERED: MAGNESIUM HYDROXIDE SUSPENSION 30 ML UDCUP PO PRN (07:30)
[2021-05-07] MEDS ORDERED: DOCUSATE SODIUM 100 MG CAPSULE PO PRN (07:30)
[2021-05-07] MEDS ORDERED: LOPERAMIDE HCL 2 MG CAPSULE PO PRN (07:30)
[2021-05-07] MEDS ORDERED: ALBUTEROL SULFATE HFA 90 MCG/PUFF 8 GM INHALER IH PRN (07:30)
[2021-05-07] MEDS ORDERED: ONDANSETRON HCL 4 MG TABLET PO PRN (07:30)
[2021-05-07] MEDS ORDERED: ACETAMINOPHEN 325 MG TABLET PO PRN (07:30)
[2021-05-07] MEDS ORDERED: NICOTINE 14 MG/24 HOUR PATCH TD PRN (07:30)
[2021-05-07 10:15] VITALS: BP 111/60
[2021-05-07 10:46] VITALS: BP 111/60
[2021-05-07 17:37] VITALS: BP 122/63
[2021-05-07] MEDS ORDERED: LEVO50 PO (19:11)
[2021-05-07] MEDS: GABAPENTIN 300 MG CAPSULE PO SCH (20:53)
[2021-05-07 22:32] VITALS: BP 110/68
[2021-05-08 06:33] VITALS: BP 105/65
[2021-05-08 08:00] LABS: CHOL/HDL RATIO 4.2 (4.2-7.3); URIC ACID 7.6 mg/dL (2.6-7.2)
[2021-05-08] MEDS: GABAPENTIN 300 MG CAPSULE PO SCH ×2 (08:40→16:47)
[2021-05-08] MEDS: LORazepam 2 MG TABLET PO PRN (08:40)
[2021-05-08] MEDS: OLANZapine 10 MG TABLET PO SCH ×2 (08:40→16:47)
[2021-05-08 09:08] VITALS: BP 110/65
[2021-05-08 17:40] VITALS: BP 115/69
[2021-05-09 06:19] VITALS: BP 103/58
[2021-05-09] MEDS: OLANZapine 10 MG TABLET PO SCH ×2 (09:08→16:48)
[2021-05-09] MEDS: GABAPENTIN 300 MG CAPSULE PO SCH ×2 (09:08→16:48)
[2021-05-09 16:26] VITALS: BP 120/74
[2021-05-09] MEDS: LORazepam 2 MG TABLET PO PRN (16:48)
[2021-05-10 06:11] VITALS: BP 118/78
[2021-05-10] MEDS: GABAPENTIN 300 MG CAPSULE PO SCH ×2 (08:26→16:48)
[2021-05-10] MEDS: OLANZapine 10 MG TABLET PO SCH ×2 (08:26→16:48)
[2021-05-10 08:27] VITALS: BP 101/59
[2021-05-10 16:15] VITALS: BP 122/72
[2021-05-10] MEDS: LORazepam 2 MG TABLET PO PRN (16:48)
[2021-05-10] MEDS ORDERED: GABAPENTIN 300 MG CAPSULE PO SCH (17:00)
[2021-05-10] MEDS: ZOLPIDEM TARTRATE 10 MG TABLET PO PRN (20:48)
[2021-05-11 01:05] VITALS: BP 129/84
[2021-05-11 08:27] VITALS: BP 118/73
[2021-05-11] MEDS: OLANZapine 10 MG TABLET PO SCH ×2 (08:30→16:37)
[2021-05-11] MEDS: LORazepam 2 MG TABLET PO PRN ×2 (08:30→16:37)
[2021-05-11] MEDS: GABAPENTIN 300 MG CAPSULE PO SCH ×2 (08:30→16:37)
[2021-05-11] MEDS: BuPROPion HCL XL 150 MG ER TABLET PO SCH (09:21)
[2021-05-11 16:25] VITALS: BP 125/73
[2021-05-11] MEDS: ZOLPIDEM TARTRATE 10 MG TABLET PO PRN (20:10)
[2021-05-12 00:59] VITALS: BP 140/82
[2021-05-12] MEDS: OLANZapine 10 MG TABLET PO SCH ×2 (08:20→16:21)
[2021-05-12] MEDS: BuPROPion HCL XL 150 MG ER TABLET PO SCH (08:20)
[2021-05-12] MEDS: GABAPENTIN 300 MG CAPSULE PO SCH ×2 (08:20→16:21)
[2021-05-12 12:25] VITALS: BP 107/70
[2021-05-12 16:30] VITALS: BP 126/68
[2021-05-12] MEDS: ZOLPIDEM TARTRATE 10 MG TABLET PO PRN (20:41)
[2021-05-13 05:26] VITALS: BP 110/67
[2021-05-13 08:12] VITALS: BP 113/65
[2021-05-13] MEDS: GABAPENTIN 300 MG CAPSULE PO SCH ×2 (10:11→17:00)
[2021-05-13] MEDS: OLANZapine 10 MG TABLET PO SCH (10:11)
[2021-05-13] MEDS: BuPROPion HCL XL 150 MG ER TABLET PO SCH (10:11)
[2021-05-13] MEDS: OLANZapine 7.5 MG TABLET PO SCH (17:01)
[2021-05-13] MEDS: LORazepam 2 MG TABLET PO PRN (17:04)
[2021-05-13 17:31] VITALS: BP 105/66
[2021-05-13] MEDS: ZOLPIDEM TARTRATE 10 MG TABLET PO PRN (20:08)
[2021-05-14 01:42] VITALS: BP 137/76
[2021-05-14 07:54] VITALS: BP 106/58
[2021-05-14] MEDS: OLANZapine 7.5 MG TABLET PO SCH ×2 (08:29→16:19)
[2021-05-14] MEDS: GABAPENTIN 300 MG CAPSULE PO SCH ×2 (08:30→16:19)
[2021-05-14] MEDS: BuPROPion HCL XL 150 MG ER TABLET PO SCH (08:30)
[2021-05-14] MEDS: LORazepam 2 MG TABLET PO PRN ×3 (08:30→23:10)
[2021-05-14 14:22] VITALS: BP 106/58
[2021-05-14 16:39] VITALS: BP 117/65
[2021-05-14] MEDS ORDERED: MAGNESIUM SULFATE 454 GM BOX TP PRN (19:45)
[2021-05-14] MEDS: ZOLPIDEM TARTRATE 10 MG TABLET PO PRN (20:12)
[2021-05-15 04:19] VITALS: BP 112/69
[2021-05-15 08:16] VITALS: BP 153/98
[2021-05-15] MEDS ORDERED: OMEGA-3/DHA/EPA/FISH OIL 1,000 MG CAPSULE PO SCH (09:00)
[2021-05-15] MEDS: GABAPENTIN 300 MG CAPSULE PO SCH (09:17)
[2021-05-15] MEDS: OLANZapine 7.5 MG TABLET PO SCH (09:17)
[2021-05-15] MEDS: BuPROPion HCL XL 150 MG ER TABLET PO SCH (09:18)
[2021-05-15] MEDS: LORazepam 2 MG TABLET PO PRN (09:18)
[2021-05-15] MEDS ORDERED: GABA-1181 PO (14:18)
[2021-05-15] MEDS ORDERED: OLAN7.5T22 PO (14:19)
[2021-05-15] MEDS ORDERED: BUPR-93 PO (14:19)
== END 2021-05-15 15:00 | disposition home or self-care (01) | DRG 750 ==
LOC: EMS 20:31 → B3A 05-07 00:17
PROVIDERS: ADMIT Psychiatry & Neurology Psychiatry; ATTEND Psychiatry & Neurology Psychiatry
DX: F20.0 Paranoid schizophrenia (principal); R45.851 Suicidal ideations; Z59.0 Homelessness; Z20.822 Contact with and (suspected) exposure to COVID-19; F15.90 Other stimulant use, unspecified, uncomplicated; R00.0 Tachycardia, unspecified; R03.0 Elevated blood-pressure reading, without diagnosis of hypertension
CPT/HCPCS: 80053; 80061; 84550; 85025; 99291; G0480; J1200; J1630; J2060

== ENCOUNTER 2021-05-22 17:18 | Emergency (ER) | payer MEDICAID, OTHER ==
[~2021-05-22] VITALS: Ht 180.3 cm; Wt 81.8 kg
[~2021-05-22 17:18] MED LIST changes: +BUPR-93 PO; -FLUO-191 PO; +GABA-1181 PO; -LEVO125T95 PO; -NALT50TA PO; -OLAN10TA22 PO; +OLAN7.5T22 PO
[2021-05-22 17:20] VITALS: BP 133/93
[2021-05-22 19:54] LABS: BASOPHILS % (AUTO) 0.4 % (0.0-2.0); EOSINOPHILS % (AUTO) 2.3 % (1.0-6.0); HEMATOCRIT 42.7 % (41-53); HEMOGLOBIN 14.2 g/dL (13.5-17.5); LYMPHOCYTES # (AUTO) 4.1 K/uL (1.0-4.8); LYMPHOCYTES % (AUTO) 47.1 % (22.0-44.0); MEAN CORPUSCULAR HEMOGLOBIN 28.5 pg (26.0-34.0); MEAN CORPUSCULAR HGB CONC 33.2 G/dL (31.0-37.0); MEAN CORPUSCULAR VOLUME 86 fL (80-100); MONOCYTES # (AUTO) 0.7 K/uL (0.1-1.0); NEUTROPHILS # (AUTO) 3.7 K/uL (1.8-7.7); NEUTROPHILS % (AUTO) 42.2 % (40.0-70.0); PLATELET COUNT (AUTO) 289 K/uL (150-450); RED BLOOD CELL COUNT(AUTO) 4.99 MIL/uL (4.50-5.90); RED CELL DISTRIBUTION WIDTH 14.2 % (11.5-14.5)
[2021-05-22 20:14] LABS: ALANINE AMINOTRANSFERASE 76 U/L (12-78); ALBUMIN 4.2 g/dL (3.4-5.0); ALKALINE PHOSPHATASE 104 U/L (46-116); ANION GAP 6 mmol/L (8-16); ASPARTATE AMINOTRANSFERASE 77 U/L (15-37); BILIRUBIN,TOTAL 0.5 mg/dL (0.1-1.0); CALCIUM, TOTAL 8.6 mg/dL (8.8-10.5); CARBON DIOXIDE 28 mmol/L (22-29); CHLORIDE 101 mmol/L (98-107); CREATININE 1.13 mg/dL (0.60-1.30); GLOMERULAR FILTR. RATE CALC > 60 mL/min (>60); GLUCOSE,RANDOM 143 mg/dL (70-110); SODIUM SERUM 135 mmol/L (136-145); TOTAL PROTEIN, SERUM 8.1 g/dL (6.4-8.2); UREA NITROGEN, BLOOD 7 mg/dL (7-18)
[2021-05-22 21:19] LABS: AMPHET/METH SCREEN,URINE POSITIVE (NEGATIVE); BARBITURATE SCREEN, URINE NEGATIVE (NEGATIVE); BENZODIAZEPINES SCREEN,URINE NEGATIVE (NEGATIVE); CANNABINOID SCREEN,URINE POSITIVE (NEGATIVE); COCAINE SCREEN,URINE NEGATIVE (NEGATIVE); METHADONE SCREEN, URINE NEGATIVE (NEGATIVE); OPIATE SCREEN,URINE NEGATIVE (NEGATIVE)
[2021-05-22 21:23] LABS: PHENCYCLIDINE SCREEN,URINE NEGATIVE (NEGATIVE)
== END 2021-05-22 23:10 | disposition home or self-care (01) ==
LOC: EMS 17:21
DX: F41.9 Anxiety disorder, unspecified (principal); F15.10 Other stimulant abuse, uncomplicated; E87.6 Hypokalemia; Z79.899 Other long term (current) drug therapy; F17.210 Nicotine dependence, cigarettes, uncomplicated; Z59.0 Homelessness
CPT/HCPCS: 36415; 80053; 80307; 85025; 99283; G0480

== ENCOUNTER 2022-01-25 13:03 | Emergency (ER) | payer OTHER ==
[~2022-01-25] VITALS: Ht 185.4 cm; Wt 100.0 kg
[~2022-01-25 13:03] MED LIST changes: +BUPR-50 PO; -BUPR-93 PO
[2022-01-25 13:30] VITALS: BP 114/66
== END 2022-01-25 14:27 | disposition left against medical advice (07) ==
LOC: EMS 13:05
DX: S00.81XA Abrasion of other part of head, initial encounter (principal); F31.9 Bipolar disorder, unspecified; F20.9 Schizophrenia, unspecified; F15.90 Other stimulant use, unspecified, uncomplicated; F17.210 Nicotine dependence, cigarettes, uncomplicated; Z79.899 Other long term (current) drug therapy; Z59.00 Homelessness unspecified; X58.XXXA Exposure to other specified factors, initial encounter; Y93.89 Activity, other specified; Y92.89 Other specified places as the place of occurrence of the external cause; Y99.8 Other external cause status
CPT/HCPCS: 99283

== ENCOUNTER 2022-02-06 10:05 | Inpatient (IN) | payer MEDICAID ==
[2022-02-06 14:04] VITALS: BP 125/76
[2022-02-06 16:14] VITALS: BP 101/62
[2022-02-07 05:11] VITALS: BP 139/99
[2022-02-07 16:08] VITALS: BP 123/68
[2022-02-07] MEDS: LORazepam 2 MG TABLET PO PRN (17:48)
[2022-02-07] MEDS: HALOPERIDOL 5 MG TABLET PO PRN (17:48)
[2022-02-07] MEDS ORDERED: LOPERAMIDE HCL 2 MG CAPSULE PO PRN (20:00)
[2022-02-07] MEDS ORDERED: MAG HYDROX/AL HYDROX/SIMETH ES 30 ML SUSPENSION UDCUP PO PRN (20:00)
[2022-02-07] MEDS ORDERED: BENZOCAINE/MENTHOL LOZENGE PO PRN (20:00)
[2022-02-07] MEDS ORDERED: BACITRACIN 28 GM OINTMENT TP PRN (20:00)
[2022-02-07] MEDS ORDERED: ALBUTEROL SULFATE HFA 90 MCG/PUFF 8 GM INHALER IH PRN (20:00)
[2022-02-07] MEDS ORDERED: CloNIDine HCL 0.1 MG TABLET PO PRN (20:00)
[2022-02-07] MEDS ORDERED: PETROLATUM,WHITE 28 GM JELLY TP PRN (20:00)
[2022-02-07] MEDS ORDERED: IBUPROFEN 600 MG TABLET PO PRN (20:00)
[2022-02-07] MEDS ORDERED: ACETAMINOPHEN 325 MG TABLET PO PRN (20:00)
[2022-02-07] MEDS ORDERED: MAGNESIUM HYDROXIDE SUSPENSION 30 ML UDCUP PO PRN (20:00)
[2022-02-07] MEDS ORDERED: ONDANSETRON HCL 4 MG TABLET PO PRN (20:00)
[2022-02-07] MEDS: LITHIUM CARBONATE 300 MG CAPSULE PO SCH (20:39)
[2022-02-07] MEDS: HALOPERIDOL 10 MG TABLET PO SCH (20:39)
[2022-02-07] MEDS: DIVALPROEX SODIUM 500 MG DR TABLET PO SCH (20:39)
[2022-02-08 05:28] VITALS: BP 124/72
[2022-02-08 07:19] LABS: BASOPHILS % (AUTO) 0.6 % (0.0-2.0); EOSINOPHILS % (AUTO) 2.2 % (1.0-6.0); HEMATOCRIT 43.5 % (41-53); HEMOGLOBIN 14.3 g/dL (13.5-17.5); LYMPHOCYTES # (AUTO) 4.3 K/uL (1.0-4.8); LYMPHOCYTES % (AUTO) 59.3 % (22.0-44.0); MEAN CORPUSCULAR HEMOGLOBIN 27.2 pg (26.0-34.0); MEAN CORPUSCULAR HGB CONC 32.9 G/dL (31.0-37.0); MEAN CORPUSCULAR VOLUME 83 fL (80-100); MONOCYTES # (AUTO) 0.7 K/uL (0.1-1.0); MONOCYTES % (AUTO) 9.3 % (2.0-9.0); NEUTROPHILS # (AUTO) 2.1 K/uL (1.8-7.7); NEUTROPHILS % (AUTO) 28.6 % (40.0-70.0); PLATELET COUNT (AUTO) 298 K/uL (150-450); RED BLOOD CELL COUNT(AUTO) 5.27 MIL/uL (4.50-5.90); RED CELL DISTRIBUTION WIDTH 15.1 % (11.5-14.5)
[2022-02-08 07:26] LABS: HEMOGLOBIN A1C 5.5 % (3.8-5.6)
[2022-02-08 07:59] LABS: ANION GAP 7 mmol/L (8-16); CARBON DIOXIDE 28 mmol/L (22-29); CHLORIDE 105 mmol/L (98-107); CREATININE 0.78 mg/dL (0.60-1.30); GLUCOSE,RANDOM 78 mg/dL (70-110); POTASSIUM 4.1 mmol/L (3.5-5.1); SODIUM SERUM 140 mmol/L (136-145); UREA NITROGEN, BLOOD 10 mg/dL (7-18)
[2022-02-08 08:00] LABS: ALANINE AMINOTRANSFERASE 104 U/L (12-78); ALBUMIN 3.5 g/dL (3.4-5.0); ALKALINE PHOSPHATASE 101 U/L (46-116); ASPARTATE AMINOTRANSFERASE 41 U/L (15-37); BILIRUBIN,TOTAL 0.2 mg/dL (0.1-1.0); CALCIUM, TOTAL 8.7 mg/dL (8.8-10.5); CHOL/HDL RATIO 4.3 (4.2-7.3); CHOLESTEROL 198 mg/dL (131-200); GLOMERULAR FILTR. RATE CALC > 60 mL/min (>60); HDL CHOLESTEROL 46 mg/dL (40-60); LDL CHOL (CALC.) 106 mg/dL (0-130); TOTAL PROTEIN, SERUM 7.4 g/dL (6.4-8.2); TRIGLYCERIDES 228 mg/dL (15-150)
[2022-02-08 08:12] VITALS: BP 142/81
[2022-02-08 08:32] LABS: FREE T4 (FREE THYROXINE) 0.72 ng/dL (0.76-1.46); THYROID STIMULATING HORMONE 14.63 uIU/mL (0.36-3.74)
[2022-02-08] MEDS: DIVALPROEX SODIUM 500 MG DR TABLET PO SCH ×2 (08:41→20:16)
[2022-02-08] MEDS: LITHIUM CARBONATE 300 MG CAPSULE PO SCH ×2 (08:41→20:16)
[2022-02-08] MEDS: OMEPRAZOLE 20 MG CAPSULE PO SCH (08:41)
[2022-02-08] MEDS: DOCUSATE SODIUM 100 MG CAPSULE PO SCH (08:41)
[2022-02-08 16:07] VITALS: BP 137/77
[2022-02-08] MEDS: ZOLPIDEM TARTRATE 10 MG TABLET PO PRN (20:16)
[2022-02-08] MEDS: HALOPERIDOL 10 MG TABLET PO SCH (20:16)
[2022-02-09 04:25] VITALS: BP 99/61
[2022-02-09 08:09] VITALS: BP 126/74
[2022-02-09] MEDS: OMEPRAZOLE 20 MG CAPSULE PO SCH (08:52)
[2022-02-09] MEDS: LITHIUM CARBONATE 300 MG CAPSULE PO SCH ×2 (08:53→21:05)
[2022-02-09] MEDS: DOCUSATE SODIUM 100 MG CAPSULE PO SCH (08:53)
[2022-02-09] MEDS: DIVALPROEX SODIUM 500 MG DR TABLET PO SCH ×2 (08:53→21:05)
[2022-02-09] MEDS: HALOPERIDOL 5 MG TABLET PO PRN (08:53)
[2022-02-09] MEDS: LORazepam 2 MG TABLET PO PRN ×2 (08:53→16:15)
[2022-02-09 16:07] VITALS: BP 109/75
[2022-02-09] MEDS: HALOPERIDOL 10 MG TABLET PO SCH (21:05)
[2022-02-09] MEDS: ZOLPIDEM TARTRATE 10 MG TABLET PO PRN (21:05)
[2022-02-10 04:36] VITALS: BP 103/58
[2022-02-10 08:00] VITALS: BP 148/94
[2022-02-10] MEDS: DIVALPROEX SODIUM 500 MG DR TABLET PO SCH ×2 (08:14→20:34)
[2022-02-10] MEDS: LITHIUM CARBONATE 300 MG CAPSULE PO SCH ×2 (08:14→20:34)
[2022-02-10] MEDS: OMEPRAZOLE 20 MG CAPSULE PO SCH (08:14)
[2022-02-10] MEDS: DOCUSATE SODIUM 100 MG CAPSULE PO SCH (08:14)
[2022-02-10 16:13] VITALS: BP 139/88
[2022-02-10] MEDS: LORazepam 2 MG TABLET PO PRN (16:55)
[2022-02-10] MEDS: HALOPERIDOL 5 MG TABLET PO PRN (16:56)
[2022-02-10] MEDS: HALOPERIDOL 10 MG TABLET PO SCH (20:34)
[2022-02-10] MEDS: ZOLPIDEM TARTRATE 10 MG TABLET PO PRN (20:34)
[2022-02-11 08:20] VITALS: BP 114/66
[2022-02-11] MEDS: LITHIUM CARBONATE 300 MG CAPSULE PO SCH ×2 (09:13→20:32)
[2022-02-11] MEDS: DIVALPROEX SODIUM 500 MG DR TABLET PO SCH ×2 (09:13→20:32)
[2022-02-11] MEDS: OMEPRAZOLE 20 MG CAPSULE PO SCH (09:13)
[2022-02-11] MEDS: DOCUSATE SODIUM 100 MG CAPSULE PO SCH (09:13)
[2022-02-11 16:03] VITALS: BP 138/78
[2022-02-11] MEDS: LORazepam 2 MG TABLET PO PRN (16:24)
[2022-02-11] MEDS: HALOPERIDOL 5 MG TABLET PO PRN (16:24)
[2022-02-11] MEDS: HALOPERIDOL 10 MG TABLET PO SCH (20:32)
[2022-02-11] MEDS: ZOLPIDEM TARTRATE 10 MG TABLET PO PRN (20:33)
[2022-02-12 04:15] VITALS: BP 102/68
[2022-02-12 07:54] LABS: LITHIUM 0.29 mmol/L (0.60-1.20)
[2022-02-12 08:07] VITALS: BP 112/70
[2022-02-12] MEDS: HALOPERIDOL 5 MG TABLET PO PRN (08:09)
[2022-02-12] MEDS: DOCUSATE SODIUM 100 MG CAPSULE PO SCH (08:09)
[2022-02-12] MEDS: LORazepam 2 MG TABLET PO PRN (08:09)
[2022-02-12] MEDS: LITHIUM CARBONATE 300 MG CAPSULE PO SCH (08:09)
[2022-02-12] MEDS: DIVALPROEX SODIUM 500 MG DR TABLET PO SCH (08:09)
[2022-02-12] MEDS: OMEPRAZOLE 20 MG CAPSULE PO SCH (08:09)
[2022-02-12 16:07] VITALS: BP 129/83
[2022-02-13] MEDS ORDERED: LEVOTHYROXINE SODIUM 50 MCG TABLET PO SCH (06:30)
== END 2022-02-12 18:30 | disposition home or self-care (01) | DRG 750 ==
LOC: B3A 13:33
PROVIDERS: ADMIT Psychiatry & Neurology Psychiatry; ATTEND Psychiatry & Neurology Psychiatry
DX: F20.0 Paranoid schizophrenia (principal); R45.851 Suicidal ideations; E11.9 Type 2 diabetes mellitus without complications; F15.10 Other stimulant abuse, uncomplicated; F41.9 Anxiety disorder, unspecified; G47.00 Insomnia, unspecified; F12.10 Cannabis abuse, uncomplicated; F17.200 Nicotine dependence, unspecified, uncomplicated; Z56.0 Unemployment, unspecified
CPT/HCPCS: 80053; 80061; 80164; 80178; 83036; 84439; 84443; 85025

== ENCOUNTER 2022-02-19 21:58 | Inpatient (IN) | payer MEDICAID ==
[~2022-02-19] VITALS: Ht 185.4 cm; Wt 105.7 kg
[~2022-02-19 21:58] MED LIST changes: +DIVA-112 PO; +HALO10 PO; +LITH300C3 PO
[2022-02-20] MEDS ORDERED: HALOPERIDOL 5 MG TABLET PO PRN (01:15)
[2022-02-20 01:30] VITALS: BP 129/87
[2022-02-20] MEDS ORDERED: OMEPRAZOLE 20 MG CAPSULE PO PRN (08:30)
[2022-02-20] MEDS ORDERED: LOPERAMIDE HCL 2 MG CAPSULE PO PRN (08:30)
[2022-02-20] MEDS ORDERED: DOCUSATE SODIUM 100 MG CAPSULE PO PRN (08:30)
[2022-02-20] MEDS ORDERED: BENZOCAINE/MENTHOL LOZENGE PO PRN (08:30)
[2022-02-20] MEDS ORDERED: CloNIDine HCL 0.1 MG TABLET PO PRN (08:30)
[2022-02-20] MEDS ORDERED: ALBUTEROL SULFATE HFA 90 MCG/PUFF 8 GM INHALER IH PRN (08:30)
[2022-02-20] MEDS ORDERED: ONDANSETRON HCL 4 MG TABLET PO PRN (08:30)
[2022-02-20] MEDS ORDERED: ACETAMINOPHEN 325 MG TABLET PO PRN (08:30)
[2022-02-20] MEDS ORDERED: MAG HYDROX/AL HYDROX/SIMETH ES 30 ML SUSPENSION UDCUP PO PRN (08:30)
[2022-02-20] MEDS ORDERED: PETROLATUM,WHITE 28 GM JELLY TP PRN (08:30)
[2022-02-20] MEDS ORDERED: IBUPROFEN 600 MG TABLET PO PRN (08:30)
[2022-02-20] MEDS ORDERED: BACITRACIN 28 GM OINTMENT TP PRN (08:30)
[2022-02-20] MEDS ORDERED: MAGNESIUM HYDROXIDE SUSPENSION 30 ML UDCUP PO PRN (08:30)
[2022-02-20 16:03] VITALS: BP 135/75
[2022-02-21 04:41] VITALS: BP 128/71
[2022-02-21] MEDS: LEVOTHYROXINE SODIUM 100 MCG TABLET PO SCH (06:44)
[2022-02-21 08:10] LABS: BASOPHILS % (AUTO) 0.4 % (0.0-2.0); EOSINOPHILS % (AUTO) 3.8 % (1.0-6.0); HEMATOCRIT 42.9 % (41-53); HEMOGLOBIN 14.4 g/dL (13.5-17.5); LYMPHOCYTES # (AUTO) 3.5 K/uL (1.0-4.8); LYMPHOCYTES % (AUTO) 52.2 % (22.0-44.0); MEAN CORPUSCULAR HEMOGLOBIN 27.5 pg (26.0-34.0); MEAN CORPUSCULAR HGB CONC 33.5 G/dL (31.0-37.0); MEAN CORPUSCULAR VOLUME 82 fL (80-100); MONOCYTES # (AUTO) 0.5 K/uL (0.1-1.0); MONOCYTES % (AUTO) 7.7 % (2.0-9.0); NEUTROPHILS # (AUTO) 2.4 K/uL (1.8-7.7); NEUTROPHILS % (AUTO) 35.9 % (40.0-70.0); PLATELET COUNT (AUTO) 278 K/uL (150-450); RED BLOOD CELL COUNT(AUTO) 5.22 MIL/uL (4.50-5.90)
[2022-02-21 08:21] LABS: HEMOGLOBIN A1C 5.3 % (3.8-5.6)
[2022-02-21 08:39] LABS: ALANINE AMINOTRANSFERASE 39 U/L (12-78); ALBUMIN 3.4 g/dL (3.4-5.0); ALKALINE PHOSPHATASE 104 U/L (46-116); ANION GAP 10 mmol/L (8-16); ASPARTATE AMINOTRANSFERASE 21 U/L (15-37); BILIRUBIN,TOTAL 0.2 mg/dL (0.1-1.0); CALCIUM, TOTAL 8.4 mg/dL (8.8-10.5); CARBON DIOXIDE 26 mmol/L (22-29); CHLORIDE 103 mmol/L (98-107); CHOL/HDL RATIO 4.1 (4.2-7.3); CHOLESTEROL 169 mg/dL (131-200); CREATININE 0.66 mg/dL (0.60-1.30); GLOMERULAR FILTR. RATE CALC > 60 mL/min (>60); GLUCOSE,RANDOM 85 mg/dL (70-110); HDL CHOLESTEROL 41 mg/dL (40-60); LDL CHOL (CALC.) 86 mg/dL (0-130); PHOSPHORUS 4.3 mg/dL (2.5-4.9); POTASSIUM 3.7 mmol/L (3.5-5.1); SODIUM SERUM 139 mmol/L (136-145); THYROID STIMULATING HORMONE 6.88 uIU/mL (0.36-3.74); TOTAL PROTEIN, SERUM 7.2 g/dL (6.4-8.2); TRIGLYCERIDES 210 mg/dL (15-150); UREA NITROGEN, BLOOD 12 mg/dL (7-18)
[2022-02-21] MEDS: LITHIUM CARBONATE 300 MG CAPSULE PO SCH ×2 (09:13→20:25)
[2022-02-21] MEDS: DIVALPROEX SODIUM 500 MG DR TABLET PO SCH ×2 (09:13→20:25)
[2022-02-21 16:04] VITALS: BP 113/72
[2022-02-21] MEDS: HALOPERIDOL 10 MG TABLET PO SCH (20:25)
[2022-02-22] MEDS: LEVOTHYROXINE SODIUM 100 MCG TABLET PO SCH (06:18)
[2022-02-22] MEDS: DIVALPROEX SODIUM 500 MG DR TABLET PO SCH ×2 (08:03→20:24)
[2022-02-22] MEDS: LITHIUM CARBONATE 300 MG CAPSULE PO SCH ×2 (08:03→20:23)
[2022-02-22 08:20] VITALS: BP 125/69
[2022-02-22 16:01] VITALS: BP 124/87
[2022-02-22] MEDS: HALOPERIDOL 10 MG TABLET PO SCH (20:24)
[2022-02-23] MEDS: LEVOTHYROXINE SODIUM 100 MCG TABLET PO SCH (06:28)
[2022-02-23 08:02] VITALS: BP 120/78
[2022-02-23] MEDS: DIVALPROEX SODIUM 500 MG DR TABLET PO SCH ×2 (08:17→20:34)
[2022-02-23] MEDS: LITHIUM CARBONATE 300 MG CAPSULE PO SCH ×2 (08:17→20:34)
[2022-02-23] MEDS: LORazepam 2 MG TABLET PO PRN ×2 (10:42→20:34)
[2022-02-23 16:02] VITALS: BP 121/73
[2022-02-23] MEDS: HALOPERIDOL 10 MG TABLET PO SCH (20:34)
[2022-02-23] MEDS: ZOLPIDEM TARTRATE 10 MG TABLET PO PRN (20:34)
[2022-02-24 05:57] VITALS: BP 119/76
[2022-02-24] MEDS: LEVOTHYROXINE SODIUM 100 MCG TABLET PO SCH (06:27)
[2022-02-24] MEDS: DIVALPROEX SODIUM 500 MG DR TABLET PO SCH ×2 (08:08→20:17)
[2022-02-24] MEDS: LITHIUM CARBONATE 300 MG CAPSULE PO SCH ×2 (08:08→20:17)
[2022-02-24 08:11] VITALS: BP 132/76
[2022-02-24 15:51] VITALS: BP 134/73
[2022-02-24 16:00] VITALS: BP 134/73
[2022-02-24] MEDS: LORazepam 2 MG TABLET PO PRN (17:16)
[2022-02-24] MEDS: HALOPERIDOL 10 MG TABLET PO SCH (20:17)
[2022-02-24] MEDS: ZOLPIDEM TARTRATE 10 MG TABLET PO PRN (20:17)
[2022-02-25] MEDS: LEVOTHYROXINE SODIUM 100 MCG TABLET PO SCH (06:13)
[2022-02-25] MEDS: DIVALPROEX SODIUM 500 MG DR TABLET PO SCH ×2 (08:04→20:25)
[2022-02-25] MEDS: LITHIUM CARBONATE 300 MG CAPSULE PO SCH ×2 (08:04→20:26)
[2022-02-25 08:07] VITALS: BP 122/60
[2022-02-25] MEDS: LORazepam 2 MG TABLET PO PRN (16:00)
[2022-02-25 16:03] VITALS: BP 126/70
[2022-02-25] MEDS: HALOPERIDOL 10 MG TABLET PO SCH (20:26)
[2022-02-25] MEDS: ZOLPIDEM TARTRATE 10 MG TABLET PO PRN (20:26)
[2022-02-26 04:10] VITALS: BP 123/67
[2022-02-26] MEDS: LEVOTHYROXINE SODIUM 100 MCG TABLET PO SCH (06:07)
[2022-02-26 07:32] LABS: LITHIUM 0.32 mmol/L (0.60-1.20)
[2022-02-26 08:10] VITALS: BP 118/70
[2022-02-26] MEDS: DIVALPROEX SODIUM 500 MG DR TABLET PO SCH ×2 (08:22→20:12)
[2022-02-26] MEDS: LITHIUM CARBONATE 300 MG CAPSULE PO SCH ×2 (08:22→20:12)
[2022-02-26] MEDS: LORazepam 2 MG TABLET PO PRN ×2 (08:22→14:42)
[2022-02-26 16:02] VITALS: BP 130/70
[2022-02-26] MEDS: ZOLPIDEM TARTRATE 10 MG TABLET PO PRN (20:12)
[2022-02-26] MEDS: HALOPERIDOL 10 MG TABLET PO SCH (20:12)
[2022-02-27 05:58] VITALS: BP 149/85
[2022-02-27] MEDS: LEVOTHYROXINE SODIUM 100 MCG TABLET PO SCH (06:55)
[2022-02-27] MEDS: LITHIUM CARBONATE 300 MG CAPSULE PO SCH (08:00)
[2022-02-27] MEDS: DIVALPROEX SODIUM 500 MG DR TABLET PO SCH (08:00)
[2022-02-27 08:14] VITALS: BP 115/67
[2022-02-27] MEDS ORDERED: LEVO100 PO (11:54)
[2022-02-28 16:21] LABS: GLUCOMETER DEV NAME(LOC) POC.BV
== END 2022-02-27 16:01 | disposition home or self-care (01) | DRG 750 ==
LOC: B3A 02-20 01:14
PROVIDERS: ADMIT Psychiatry & Neurology Psychiatry; ATTEND Psychiatry & Neurology Psychiatry
DX: F20.0 Paranoid schizophrenia (principal); Z59.00 Homelessness unspecified; E03.9 Hypothyroidism, unspecified; F15.10 Other stimulant abuse, uncomplicated; F41.9 Anxiety disorder, unspecified; G47.00 Insomnia, unspecified; Z20.822 Contact with and (suspected) exposure to COVID-19; K59.00 Constipation, unspecified; Z56.0 Unemployment, unspecified
CPT/HCPCS: 80053; 80061; 80164; 80178; 83036; 83735; 84100; 84443; 85025; 87081

== ENCOUNTER 2022-03-08 02:41 | Emergency (ER) | payer MEDICAID, OTHER ==
[~2022-03-08] VITALS: Ht 177.8 cm; Wt 84.1 kg
[~2022-03-08 02:41] MED LIST changes: -BUPR-50 PO; -GABA-1181 PO; -HALO10 PO; +HALO10TA21 PO; +LEVO100 PO; -OLAN7.5T22 PO
[2022-03-08 03:14] LABS: BASOPHILS % (AUTO) 0.5 % (0.0-2.0); EOSINOPHILS % (AUTO) 1.8 % (1.0-6.0); HEMOGLOBIN 13.8 g/dL (13.5-17.5); LYMPHOCYTES # (AUTO) 3.6 K/uL (1.0-4.8); LYMPHOCYTES % (AUTO) 49.9 % (22.0-44.0); MEAN CORPUSCULAR HEMOGLOBIN 27.4 pg (26.0-34.0); MEAN CORPUSCULAR HGB CONC 33.8 G/dL (31.0-37.0); MEAN CORPUSCULAR VOLUME 81 fL (80-100); MONOCYTES # (AUTO) 0.8 K/uL (0.1-1.0); MONOCYTES % (AUTO) 11.1 % (2.0-9.0); NEUTROPHILS # (AUTO) 2.6 K/uL (1.8-7.7); NEUTROPHILS % (AUTO) 36.7 % (40.0-70.0); PLATELET COUNT (AUTO) 260 K/uL (150-450); RED BLOOD CELL COUNT(AUTO) 5.05 MIL/uL (4.50-5.90); RED CELL DISTRIBUTION WIDTH 14.7 % (11.5-14.5)
[2022-03-08] MEDS ORDERED: HALOPERIDOL 5 MG TABLET PO ONE (03:15)
[2022-03-08] MEDS ORDERED: LORazepam 2 MG TABLET PO ONE (03:15)
[2022-03-08 03:23] LABS: AMPHET/METH SCREEN,URINE POSITIVE (NEGATIVE); BARBITURATE SCREEN, URINE NEGATIVE (NEGATIVE); BENZODIAZEPINES SCREEN,URINE POSITIVE (NEGATIVE); CANNABINOID SCREEN,URINE POSITIVE (NEGATIVE); COCAINE SCREEN,URINE NEGATIVE (NEGATIVE); METHADONE SCREEN, URINE NEGATIVE (NEGATIVE); OPIATE SCREEN,URINE NEGATIVE (NEGATIVE); PHENCYCLIDINE SCREEN,URINE NEGATIVE (NEGATIVE)
[2022-03-08 03:24] LABS: ANION GAP 8 mmol/L (8-16); CALCIUM, TOTAL 8.7 mg/dL (8.8-10.5); CARBON DIOXIDE 29 mmol/L (22-29); CHLORIDE 100 mmol/L (98-107); CREATININE 0.79 mg/dL (0.60-1.30); GLOMERULAR FILTR. RATE CALC > 60 mL/min (>60); GLUCOSE,RANDOM 77 mg/dL (70-110); POTASSIUM 3.5 mmol/L (3.5-5.1); SODIUM SERUM 137 mmol/L (136-145); UREA NITROGEN, BLOOD 11 mg/dL (7-18)
[2022-03-08 03:27] LABS: LITHIUM < 0.20 mmol/L (0.60-1.20)
[2022-03-08 03:30] LABS: ALANINE AMINOTRANSFERASE 57 U/L (12-78); ALKALINE PHOSPHATASE 118 U/L (46-116); ASPARTATE AMINOTRANSFERASE 47 U/L (15-37); BILIRUBIN,TOTAL 0.6 mg/dL (0.1-1.0); TOTAL PROTEIN, SERUM 8.1 g/dL (6.4-8.2)
[2022-03-08 03:41] LABS: VALPROIC ACID < 3 mcg/mL (50-100)
[2022-03-08 06:23] VITALS: BP 146/90
== END 2022-03-08 07:08 | disposition home or self-care (01) ==
LOC: EMS 02:43
DX: F20.9 Schizophrenia, unspecified (principal); F15.10 Other stimulant abuse, uncomplicated; F10.20 Alcohol dependence, uncomplicated; F31.9 Bipolar disorder, unspecified; F17.210 Nicotine dependence, cigarettes, uncomplicated; F12.90 Cannabis use, unspecified, uncomplicated; Z87.898 Personal history of other specified conditions; Z86.59 Personal history of other mental and behavioral disorders; Z98.890 Other specified postprocedural states; Z59.00 Homelessness unspecified
CPT/HCPCS: 36415; 80053; 80164; 80178; 80307; 85025; 99284; G0480

== ENCOUNTER 2025-10-05 23:48 | Emergency (ER) | payer MEDICAID ==
[~2025-10-05] VITALS: Ht 175.3 cm; Wt 90.9 kg
[~2025-10-05 23:48] MED LIST changes: -HALO10TA21 PO; -LEVO100 PO; +RISP3TAB77 PO
[2025-10-06 00:01] VITALS: BP 134/70; PULSE 89; RESP 16; TEMP 98.1; O2SAT 98
[2025-10-06 00:56] LABS: COVID AG,FIA SOURCE NASAL SWAB
[2025-10-06 00:59] LABS: PLATELET COUNT (AUTO) 379 K/uL (150-450); RED BLOOD CELL COUNT(AUTO) 5.17 MIL/uL (4.50-5.90); RED CELL DISTRIBUTION WIDTH 16.3 % (11.5-14.5); WHITE BLOOD COUNT (AUTO) 6.4 K/uL (4.5-11.0)
[2025-10-06 01:17] LABS: CALCIUM, TOTAL 8.4 mg/dL (8.8-10.5); CREATININE 0.64 mg/dL (0.60-1.30); GLOMERULAR FILTR. RATE CALC > 60 mL/min (>60); GLUCOSE,RANDOM 89 mg/dL (70-110); SODIUM SERUM 139 mmol/L (136-145); UREA NITROGEN, BLOOD 4 mg/dL (7-18)
[2025-10-06 01:41] LABS: SARS-COV2 (COVID) ANTIGEN,FIA Negative (Negative)
== END 2025-10-06 02:30 ==
LOC: EMS 23:57
DX: F20.9 Schizophrenia, unspecified (principal); F15.10 Other stimulant abuse, uncomplicated; F10.20 Alcohol dependence, uncomplicated; F12.90 Cannabis use, unspecified, uncomplicated; F17.210 Nicotine dependence, cigarettes, uncomplicated; F31.9 Bipolar disorder, unspecified; Z98.890 Other specified postprocedural states; Z79.899 Other long term (current) drug therapy; Z59.00 Homelessness unspecified; Z20.822 Contact with and (suspected) exposure to COVID-19
CPT/HCPCS: 99284; 87426; 80048; 85025; 36415; G0480

== ENCOUNTER 2025-10-07 19:00 | Emergency (ER) | payer MEDICAID ==
[~2025-10-07] VITALS: Ht 175.3 cm; Wt 86.4 kg
[2025-10-07 19:03] VITALS: BP 135/68; PULSE 96; RESP 18; TEMP 98.6; O2SAT 97
== END 2025-10-07 23:15 | disposition left against medical advice (07) ==
LOC: EMS 19:00
DX: M79.673 Pain in unspecified foot (principal); Z53.21 Procedure and treatment not carried out due to patient leaving prior to being seen by health care provider
CPT/HCPCS: 99281; Z7502

== ENCOUNTER 2025-10-08 03:14 | Emergency (ER) | payer MEDICAID ==
[~2025-10-08] VITALS: Ht 180.3 cm; Wt 86.3 kg
[2025-10-08 03:20] VITALS: BP 146/100; PULSE 80; RESP 18; TEMP 98.4; O2SAT 97
[2025-10-08 04:36] LABS: PLATELET COUNT (AUTO) 393 K/uL (150-450); RED BLOOD CELL COUNT(AUTO) 5.55 MIL/uL (4.50-5.90); RED CELL DISTRIBUTION WIDTH 16.1 % (11.5-14.5); WHITE BLOOD COUNT (AUTO) 5.3 K/uL (4.5-11.0)
[2025-10-08 04:54] LABS: CALCIUM, TOTAL 8.7 mg/dL (8.8-10.5); CREATININE 0.55 mg/dL (0.60-1.30); GLOMERULAR FILTR. RATE CALC > 60 mL/min (>60); GLUCOSE,RANDOM 70 mg/dL (70-110); SODIUM SERUM 141 mmol/L (136-145); UREA NITROGEN, BLOOD 7 mg/dL (7-18)
== END 2025-10-08 05:35 | disposition home or self-care (01) ==
LOC: EMS 03:15
DX: F15.10 Other stimulant abuse, uncomplicated (principal); F10.20 Alcohol dependence, uncomplicated; F12.90 Cannabis use, unspecified, uncomplicated; R45.851 Suicidal ideations; Z59.00 Homelessness unspecified; Z98.890 Other specified postprocedural states; Z79.899 Other long term (current) drug therapy
CPT/HCPCS: 99283; 80048; 85025; 36415; G0480